=== PATIENT | female | born 1945 | race Caucasian/White ===

== ENCOUNTER → 2017-12-11 08:32 | Outpatient (CLI) | payer MEDICARE, OTHER, SELFPAY ==
--- NOTE | 2017-12-11 08:32 | DT_ITS ---
This patient was seen during an EMR downtime December 04, 2017 - December 11, 2017. This patient may have a combination of paper and electronic documentation or all paper documentation. All documentation is viewable within the e-chart portion of [facility] for each patient visit.
[2017-12-11 12:30] LABS: Absolute Lymphocyte Count 0.97 X10^3/ul (0.83-4.51); Absolute Neutrophil Count 3.6 X10^3/uL (2.0-7.7); Basophil# 0.04 X10^3/uL; Basophil% 0.8 % (0-1); Eosinophil# 0.21 X10^3/uL; Hematocrit 44.7 % (37-47); Hemoglobin 14.5 g/dl (12.0-15.0); Lymphocyte # 0.97 X10^3/ul (4.0); Lymphocyte % 18.4 % (19-41); Mean Corp Hgb Conc 32.4 g/gl (32-36); Mean Corpuscular Volume 89.4 fL (81-99); Mean Platelet Vol. 10.3 fl (6.2-12.0); Monocyte% 9.5 % (0-10); Neutrophil # 3.56 X10^3/uL (2.7-7.7); Neutrophil % 67.3 % (47-70); Platelet Count 262 K/mm3 (150-450); RBC Distribution Width SD 42.5 fl (35.1-43.9); White Blood Count 5.3 K/mm3 (4.4-11.0)
[2017-12-11 12:40] LABS: POSITIVE COUNT NO; POSITIVE DIFFERENTIAL NO; POSITIVE MORPHOLOGY NO
[2017-12-11 13:00] LABS: Anion Gap 8 (5-15); BUN 17 mg/dL (7-18); BUN/Creat Ratio 20.4 RATIO (10-20); Calcium,Total 9.6 mg/dL (8.5-10.1); Chloride 99 mmol/L (98-107); Creatinine, Serum 0.83 mg/dL (0.55-1.02); EST Glomerular Filtration Rate 72 mL/min (>60); Est Glom Filt Rate - Afr Amer 87 mL/min (>60); Glucose 92 mg/dL (74-106); Sodium Level 139 mmol/L (136-145); Thyroid Stim Hormone (TSH) 0.47 uIU/mL (0.358-3.74)
== END ==
PROVIDERS: Family Provider Family Medicine; PCP Family Medicine; Visit Provider Family Medicine
DX: I10 Essential (primary) hypertension (principal); R53.83 Other fatigue
CPT/HCPCS: 36415; 80048; 84443; 85025

== ENCOUNTER 2018-06-09 02:11 | Emergency (ER) | payer MEDICARE, OTHER, SELFPAY ==
[2018-06-09 02:12] VITALS: BP 113/73; PULSE 81; RESP 24; TEMP 36.7; O2SAT 94; BMI 246.5
--- NOTE | 2018-06-09 02:21 | ED.RN ---
RN CALLED FOR EKG, PULLED OLD EKGS FOR
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
[2018-06-09] MEDS: 0.9% Normal Saline 1,000 ML 1000 ML IV (02:46)
[2018-06-09 03:03] LABS: BUN 15 mg/dL (7-18); Creatinine, Serum 0.84 mg/dL (0.55-1.02); Estimated Creatinine Clearance 57.51 ml/min; Glucose 109 mg/dL (74-106)
[2018-06-09 03:04] LABS: ALB/GLOB Ratio 1.3 RATIO (0.9-2.4); AST(SGOT) 20 U/L (15-37); Alanine Aminotransfer ALT/SGPT 19 U/L (13-56); Albumin, Serum 3.8 g/dL (3.2-5.0); Alkaline Phosphatase 93 U/L (45-117); Anion Gap 10 (5-15); BUN/Creat Ratio 17.8 RATIO (10-20); Chloride 101 mmol/L (98-107); EST Glomerular Filtration Rate 70 mL/min (>60); Est Glom Filt Rate - Afr Amer 85 mL/min (>60); Globulin 2.9 g/dL (2.2-4.2); Potassium 2.9 mmol/L (3.5-5.1); Protein, Total 6.7 g/dL (6.4-8.2); Sodium Level 138 mmol/L (136-145)
--- NOTE | 2018-06-09 03:32 | EKG12_ITS ---
Test Reason : SYNCOPY Blood Pressure : / mmHG Vent. Rate : 078 BPM Atrial Rate : 078 BPM P-R Int : 138 ms QRS Dur : 082 ms QT Int : 428 ms P-R-T Axes : 068 080 075 degrees QTc Int : 487 ms Normal sinus rhythm Normal ECG Confirmed by WILEY ROSALES, GRISEL ([id number]), development editor CHRIS MOTA ([id number]) on 06/11/2018 2:05:16 PM Referred By: MEENAKSHI Confirmed By:GRISEL JAMA MD
[2018-06-09 03:36] LABS: Absolute Lymphocyte Count 1.77 X10^3/ul (0.83-4.51); Absolute Neutrophil Count 2.6 X10^3/uL (2.0-7.7); Basophil# 0.04 X10^3/uL; Basophil% 0.8 % (0-1); Eosinophil# 0.31 X10^3/uL; Hemoglobin 13.7 g/dl (12.0-15.0); Lymphocyte # 1.77 X10^3/ul (4.0); Lymphocyte % 34.2 % (19-41); Mean Corp Hgb Conc 33.4 g/gl (32-36); Mean Corpuscular Hgb 29.1 pg (27.0-32.0); Mean Corpuscular Volume 87.2 fL (81-99); Monocyte# 0.49 X10^3/uL; Monocyte% 9.5 % (0-10); Neutrophil # 2.56 X10^3/uL (2.7-7.7); Neutrophil % 49.5 % (47-70); Platelet Count 226 K/mm3 (150-450); RBC Distribution Width CV 12.7 % (11.6-14.6); RBC Distribution Width SD 40.9 fl (35.1-43.9); White Blood Count 5.2 K/mm3 (4.4-11.0)
[2018-06-09 03:40] LABS: POSITIVE COUNT NO; POSITIVE DIFFERENTIAL NO; POSITIVE MORPHOLOGY NO
--- NOTE | 2018-06-09 03:59 | ED.DEP ---
ED Disposition - Plan for ED Patient: Disposition: Home or Assisted Living Chief Complaint: Syncope Instructions: ED Syncope Vasovagal, ED Potassium Deficiency Prescriptions: Potassium Chloride [K-Dur] 20 meq PO BID #30 tab Referrals: Jaswinder Rosen MD [Primary Care Provider] - Keep José Antonio appointment Additional Instructions: Take the potassium supplement twice a day for 2 weeks or until your family doctor reevaluate you until you to stop. Keep your appointment as scheduled. Rest for the next 24 hours and do not do any strenuous activity or driving. If you have any worsening of your condition or any new concerning symptoms, please return immediately to the emergency department for another evaluation.
[2018-06-09 04:12] VITALS: BP 114/73; PULSE 78; RESP 16; O2SAT 97
[2018-06-09 04:21] VITALS: BP 114/73; PULSE 78; RESP 16; O2SAT 97
== END 2018-06-09 04:23 | disposition home or self-care (01) ==
PROVIDERS: Emergency Provider Emergency Medicine; Family Provider Family Medicine; PCP Family Medicine
DX: R55 Syncope and collapse (principal); E87.6 Hypokalemia; I10 Essential (primary) hypertension
CPT/HCPCS: 80048; 80053; 84484; 85025; 93005; 96360; 99285; A4216

== ENCOUNTER → 2018-06-20 09:47 | Outpatient (CLI) | payer MEDICARE, OTHER, SELFPAY ==
[2018-06-09 02:12] VITALS: BMI 246.5
[2018-06-20 12:53] LABS: Anion Gap 11 (5-15); BUN 12 mg/dL (7-18); Calcium,Total 9.3 mg/dL (8.5-10.1); Chloride 98 mmol/L (98-107); EST Glomerular Filtration Rate 75 mL/min (>60); Est Glom Filt Rate - Afr Amer 91 mL/min (>60); Glucose 83 mg/dL (74-106); Potassium 3.6 mmol/L (3.5-5.1); Sodium Level 140 mmol/L (136-145)
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
== END ==
PROVIDERS: Family Provider Family Medicine; PCP Family Medicine; Visit Provider Family Medicine
DX: E87.6 Hypokalemia (principal)
CPT/HCPCS: 36415; 80048

== ENCOUNTER → 2018-07-11 10:22 | Outpatient (CLI) | payer MEDICARE, OTHER, SELFPAY ==
[2018-07-11 12:37] LABS: Cholesterol 232 mg/dL (200); High Density Lipoprotein 101 mg/dL; Triglycerides 75 mg/dL; Very Low Density Lipoprotein 15 mg/dL (5-40)
== END ==
PROVIDERS: Family Provider Family Medicine; PCP Family Medicine; Visit Provider Family Medicine
DX: Z00.00 Encounter for general adult medical examination without abnormal findings (principal)
CPT/HCPCS: 36415; 80061

== ENCOUNTER → 2018-08-17 07:21 | Outpatient (CLI) | payer MEDICARE, OTHER, SELFPAY ==
--- NOTE | 2018-08-17 07:26 | BI_ITS ---
MAMMOGRAPHY - BILATERAL SCREENING REASON FOR EXAM: Female, 72 years old. Routine annual screening examination. PERTINENT HISTORY: Non-contributory. TECHNIQUE: Digital bilateral breast [place] (3D mammographic acquisition) in the CC and MLO projections. 2-D mediolateral oblique (MLO) and craniocaudad (CC) views of both breasts were obtained. CAD: Full Field Digital Mammography with Computer Added Detection was performed. COMPARISON: Comparison is made with prior study dated October 04, 2016. FINDINGS: Breast Composition: The breasts are extremely dense, which lowers the sensitivity of mammography. There are no dominant masses or suspicious calcifications. No other significant abnormalities are identified. There has been no significant change since the prior study. BI/SCREENING MAMM (CAD), BILAT IMPRESSION: Stable bilateral screening mammogram. Yearly follow-up mammogram recommended. (A) ASSESSMENT CATEGORY: BIRADS Category 1: Negative. A letter regarding these results will be sent to the patient by the facility within 30 days. Approximately 10% of breast cancers are not detected by mammography. A normal mammogram should not delay biopsy of a clinically suspicious abnormality. [id number] Electronically Signed: Preston He MD at 11:02 EST , Service support ,
== END ==
PROVIDERS: Family Provider Family Medicine; PCP Family Medicine; Referring Provider Family Medicine; Visit Provider Family Medicine
DX: Z12.31 Encounter for screening mammogram for malignant neoplasm of breast (principal)
CPT/HCPCS: 77063; 77067

== ENCOUNTER → 2018-09-20 10:02 | Outpatient (CLI) | payer MEDICARE, OTHER, SELFPAY | PROVIDERS: Family Provider Family Medicine; PCP Family Medicine; Referring Provider Family Medicine; Visit Provider Family Medicine | DX: K52.9 Noninfective gastroenteritis and colitis, unspecified (principal) | CPT/HCPCS: 87493; 87506 ==

== ENCOUNTER 2018-12-17 09:31 | Day surgery (SDC) | payer MEDICARE, OTHER, SELFPAY ==
[2018-12-17] VITALS (8 sets, daily range): BP systolic 80–116; BP diastolic 47–71; PULSE 61–73; RESP 16; TEMP 36.2–36.3; O2SAT 98–100; BMI 19.5
--- NOTE | 2018-12-17 10:31 | HP.PCM_ITS ---
History of Present Illness Date of Admission: 12/17/18 The patient is a 73 year old F presents for screening colonoscopy. Patient states she mostly goes every day or at least every other day. Denies any blood in her stool. Patient's last colonoscopy was about 15 years ago negative per the patient. Patient states her mom's brother had colon cancer in his 70s along with prostate cancer. Denies any other family history of colon cancer. Past Medical/Surgical History - Planned Operation Planned Operative Procedure/s: cscope open access Date of Operative Procedure: 12/17/18 Permit Signed: No S.O.S: No Is This Patient Having a Total Joint: No - Previous Hospitalizations/Surgeries HX Hospitalizations: Yes - anxiety in the past HX of Surgeries: hysterectomy. bladder lift. cscope x2 Any Problems With Anesthesia: No You/Your Family Experience Fever (Hyperthermia) With Anes: No Cholinesterase deficiency: No - Cardiovascular Hx Chest Pain within Last 2 months: No Hx of Irregular Heartbeat and/or Afib: No Hx Heart Attack: No Hx Congestive Heart Failure: No Hx Rheumatic Fever: No Hx Hypertension: Yes - controlled with med Hx Internal Defibrillator: No Hx Pacemaker: No Hx Cardiac Catheterization: No Hx Cardiac Surgery/Stents/Etc.: No Hx Stress Test: Yes - 2016 and echo 2017 HX Edema: No Hx Pain in Legs when Walking/Leg Cramps: No - Respiratory Chronic Cough: No HX of Shortness of Breath: Yes - slightly sob 2ith 2 flights of stairs Hoarseness: No Hx Chronic Obstructive Pulmonary Disease (COPD): No Hx Asthma: No Hx Emphysema: No Hx Sleep Apnea: No Hx Oxygen Use at Home: No Hx Respiratory Tract Infection/Cold (presently): No Do You Snore Loudly (louder than talking or can be heard): No Do You Often Feel Tired/ Fatigued/ Sleepy Dring Daytime?: No Has Anyone Observed You Stop Breathing During Sleep?: No Result (for STOP score): Negative Hx Smoking: No Smoking Status: Never smoker - Gastrointestinal Hx Gastroesophageal Reflux: No Hx Gastrointestinal Disorders: No Hx Gastrointestinal Bleed: No Hx Ulcer: No Hx Hiatal Hernia: No Difficulty Chewing/Swallowing: No Recent Onset of Swallowing Problems: No Special diet followed at home: No Hx Unplanned Weight Loss of 20#: No HX Unplanned Weight Gain of 20#: No - Neurological Hx Seizures: No HX Syncope/Blackout Spells/Unconsciousness: No Hx CVA/Stroke: No Hx Transient Ischemic Attacks (TIA): No Hx Multiple Sclerosis: No Hx Parkinson's Disease: No Hx Head/Neck Injury: No Hx Headaches: No Hx Back Injury/Pain: No Recent Onset of Speech Difficulty: No Restless Legs: No Does patient have nerve stimulator: No Patient instructed to have device shut off: No Rep notified?: No - Blood Disorder Hx Leukemia: No Bleeding Tendencies: No Hx Deep Vein Thrombosis: No Hx High Cholesterol: No Blood Transmitted Disease: No Hx Hepatitis: No Hx Cirrhosis: No Hx Anemia: No Hx Blood Disorders: No - Reproduction : No Is Patient Lactating: No Hx Hysterectomy: Yes Hx Tubal Ligation: No Are You Post Menopause: Yes - Genitourinary Hx Renal Disease: No Hx Dialysis: No - Musculoskeletal Hx Arthritis: No Hx Rheumatoid Arthritis: No Hx Gout: No Recent Onset of an Orthopedic Problem: No - Endocrine Hx Diabetes: No Thyroid Disease: No Hx Steroid Therapy: No - Psycho/Social Hx Substance Use: No Hx Alcohol Use: No Hx Anxiety: Yes - prn med Hx Depression: No Mental Illness: No Hx Dementia: No - Miscellaneous Hx Cancer: No Recent Exposure to Contagious Disease: No Active MRSA: No Hx of C-Diff: No Any Loose Teeth: No - upper and lower partial Allergies No Known Allergies Allergy (Verified 12/13/18 15:20) Maternal No pertinent history - Discharge Is Pt Admitted From a Half-Way, or a Skilled Nursing: No Who Could Help: family After D/C, Where Do you Plan to Go: Return Home - From the PAT History Number of Risk Factors: 1 - Physical Exam General: Alert, Oriented x3, Cooperative, No apparent distress HEENT: Atraumatic Lungs: Normal air movement Cardiovascular: Regular rate Abdomen: Soft, Non Tender, Non-Distended Extremities: No clubbing, No cyanosis, No edema Neurological: Cranial nerves II-XII grossly intact Psych/Mental Status: Normal Affect Vital Signs Temp Pulse Resp BP Pulse Ox 97.4 F L 73 16 116/70 100 12/17/18 10:07 12/17/18 10:07 12/17/18 10:07 12/17/18 10:07 12/17/18 10:07 Oxygen Delivery Method Room Air Weight: 121 lb 4.068 oz Body Mass Index (BMI) 19.5 Finger Stick Blood Glucose 88 Assessment/Plan All Active Problems Hypokalemia (Acute) Acute chest pain (Acute) Chest pain (Acute) Near syncope (Acute) Altered mental status (Acute) 73-year-old female for screening for colon cancer Surgery Risks - Colonoscopy I discussed with the patient the risks of the procedure: Yes Risks Include but are not Limited To: Risks include but are not limited to: Bleeding, perforation requiring further surgery, inability to complete colonoscopy requiring barium enema. Patient no further questions at this time.
--- NOTE | 2018-12-17 11:12 | OP.ENDO_ITS ---
12/17/2018 Jaswinder Rosen MD [address] [id number] Re : Colonoscopy procedure for [place] Dear Dr. Rosen This procedure was performed on Monday, December 17, 2018. My impressions and recommendations are as follows: Impressions : - Hemorrhoids found on perianal exam. - Diverticulosis in the entire examined colon. - Non-bleeding internal hemorrhoids. - The examination was otherwise normal. - No specimens collected. Recommendations : - Discharge patient to home. - High fiber diet. - Continue present medications. - Repeat colonoscopy in 10 years for screening purposes. depending on overall health at that time. My findings are described in the full procedure note, which is enclosed. If I can be of further assistance, please feel free to contact me at Doctor phone number(s): , Work: . Sincerely, MD Bryanna Mendenhall MD 12/17/2018 11:12:08 AM This report has been signed electronically.
== END 2018-12-17 12:34 | disposition home or self-care (01) ==
LOC: EN 09:32 → AC 09:53
PROVIDERS: Family Provider Family Medicine; PCP Family Medicine; Referring Provider Surgery; Visit Provider Surgery
PROC: 0DJD8ZZ Inspection of Lower Intestinal Tract, Via Natural or Artificial Opening Endoscopic (ICD-10-PCS; CPT 45378; principal; 2018-12-17 10:40)
DX: Z12.11 Encounter for screening for malignant neoplasm of colon (principal); K64.0 First degree hemorrhoids; I10 Essential (primary) hypertension; K57.30 Diverticulosis of large intestine without perforation or abscess without bleeding; Z80.0 Family history of malignant neoplasm of digestive organs
CPT/HCPCS: G0121; J7120

== ENCOUNTER → 2019-01-25 09:32 | Outpatient (CLI) | payer MEDICARE, OTHER, SELFPAY ==
[2018-12-17 10:07] VITALS: BMI 19.5
--- NOTE | 2019-01-25 09:35 | RAD_ITS ---
STUDY: X-RAY CHEST REASON FOR EXAM: Female, 73 years old. Bad cough x3 weeks TECHNIQUE: PA and lateral views of the chest. COMPARISON: 2016 FINDINGS: The lungs are clear and expanded. There is no demonstrated pleural abnormality. Normal size heart. Normal mediastinum and nahun. Normal visualized pulmonary arteries. Normal visualized aortic arch and descending thoracic aorta. Normal visualized thoracic spine. Normal visualized ribs, clavicles, and shoulders. There is no demonstrated abnormality of the visualized soft tissue structures of the upper abdomen. RAD/Chest PA and Lateral IMPRESSION: Normal x-ray examination of the chest. Electronically Signed: Kali Underwood MD at 9:58 EDT , Service support ,
== END ==
PROVIDERS: Family Provider Family Medicine; PCP Family Medicine; Referring Provider Family Medicine; Visit Provider Family Medicine
DX: R05 Cough (principal)
CPT/HCPCS: 71046

== ENCOUNTER 2019-02-14 03:45 | Emergency (ER) | payer MEDICARE, OTHER, SELFPAY ==
[2018-12-17 10:07] VITALS: BMI 19.5
[2019-02-14 03:45] VITALS: BP 144/85; PULSE 74; RESP 22; TEMP 36.2; O2SAT 99; BMI 20.5
--- NOTE | 2019-02-14 03:57 | CT_ITS ---
STUDY: CT ABDOMEN AND PELVIS WITHOUT CONTRAST REASON FOR EXAM: Female, 73 years old. Lower back pain, right flank pain RADIATION DOSAGE (If Supplied By Facility): CTDIvol = ( 6.21 ) mGy, DLP = ( 268.18 ) mGycm TECHNIQUE: Transaxial images were obtained from the dome of the diaphragm to the symphysis pubis without oral contrast, and without intravenous contrast. Sagittal and coronal images were reconstructed. Individualized dose optimization techniques were used for this CT. COMPARISON: CT 02/01/2017. FINDINGS: There is a limited non-IV nonoral contrast study. The visualized lung bases are unremarkable. There is a small pericardial effusion. Normal liver. There is mild gallbladder distention.. There is gallbladder wall thickening and possible gallstones and/or polypoid lesions.. Normal spleen. Normal pancreas. Normal bilateral adrenal glands. Normal right kidney. Normal left kidney. No renal or ureteral calculi. No hydronephrosis Normal visualized stomach. Normal small intestine. Normal colon. The appendix is visualized and appears normal. Normal abdominal aorta. Normal inferior vena cava. Normal retroperitoneum. Normal urinary bladder. Multiple vascular calcifications in the pelvis. There is prior hysterectomy. Normal abdominal wall. The stable lucent defect within the sacrum likely Tarlov cyst. There are degenerative changes of SI joints with bony sclerosis and osteophyte formation. There is multilevel lumbar spine disc space narrowing, disc osteophyte complexes, central canal and foraminal stenoses. There is multilevel moderate facet degenerative changes. There are stable small right inguinal hernia which contains small amount of fluid. There are small less than 5 mm subchondral cysts within both femoral necks there are degenerative changes both hip joints with subchondral geodes right acetabulum. CT/Abdomen/Pelvis without Cont IMPRESSION: Limited non-IV nonoral contrast study Gallbladder distention, gallbladder wall thickening with gallstones and/or polypoid lesions, right upper quadrant ultrasound is recommended to further evaluate acute cholecystitis versus gallbladder malignancy Moderate colonic fecal load Prior hysterectomy multilevel lumbar spine disc space narrowing, disc osteophyte complexes, central canal and foraminal stenoses. There is multilevel moderate facet degenerative changes. Further evaluation with MRI lumbar spine could be performed. Bilateral sacroiliitis Stable lucent defect within the sacrum likely Tarlov cyst Stable small right inguinal hernia which contains a small amount of fluid Degenerative changes both hips, benign subchondral cystic areas both femoral necks which can be associated with impingement syndrome Electronically Signed: Arnaldo Lane, at 5:17 EDT Tel , Service support ,
--- NOTE | 2019-02-14 03:58 | ED.DCSUM_ITS ---
History of Present Illness Chief Complaint: Back Informant: Patient, Significant Other Onset: Days - 2 Narrative: Worsening right flank pain rating to the groin down anteriorly to the knee 45 minutes prior to arrival. Nausea that resolved. No urinary symptoms. States had mild right back pain 2 days ago after pushing heavy door, worsening yesterday. Symptoms worse with movement. Denies any direct direct falls. No history of kidney stones. Has been using ibuprofen with last dose 8 hours ago. No history of gastric ulcers or kidney injury. No previous similar symptoms in the past. Prior similar symptoms: No Past Medical History - Allergies and Home Meds Allergies/Adverse Reactions: Allergies No Known Allergies Allergy (Verified 12/13/18 15:20) Primary Care Physician: Jaswinder Rosen MD [Primary Care Provider] - Smoking Status: Never smoker - Family History Maternal Family History: Reports: No pertinent history Review of Systems General: Denies: Chills, Fever, Sweats Eyes: Denies: Visual changes - bilaterally, Diplopia ENT: Denies: Rhinorrhea, Sore throat Cardiovascular: Denies: Chest pain, Palpitations Respiratory: Denies: Dyspnea, Cough, Dyspnea on exertion Gastrointestinal: Denies: Abdominal pain, Nausea, Vomiting, Diarrhea, Melena, Hematochezia Genitourinary: Denies: Dysuria, Hematuria, Frequency Musculoskeletal: Reports: Back pain. Denies: Extremity Pain Skin: Denies: Rash, Wounds Neurological: Denies: Headache, Weakness, Numbness Physical Exam Vital Signs/Narrative: Vital Signs Temp Pulse Resp BP Pulse Ox 02/14/19 03:45 97.2 F L 74 22 H 144/85 H 99 Inital Vital Signs reviewed: Yes General: Well nourished, Well developed, No Acute Distress Head: Normocephalic, Atraumatic Eyes: Perrl, EOMI ENT: Moist mucous membranes, No rhinorrhea Neck: Supple, Nontender Cardiovascular: Regular rate, Regular rhythm, No murmurs Respiratory: No distress, CTA bilaterally, Chest nontender Abdomen: Soft, Nontender, Nondistended, Normal bowel sounds Back: Normal Inspection, - - Palpation right flank with no rash. Straight Leg test negative.. Negative for: CVA tenderness, Spinal tenderness Extremities: Nontender, No edema Skin: Normal color, No rash Neurological: Alert, Oriented x3, Cranial nerves II-XII grossly intact, Normal Strength, Normal Sensation Psychological: Normal affect, Normal Mood Diagnostic/Tx/Re-eval Abnormal Lab Results 02/14/19 02/14/19 02/14/19 04:10 04:13 04:13 WBC 6.2 RBC 4.73 Hgb 13.7 Hct 42.4 MCV 89.6 MCH 29.0 MCHC 32.3 RDW Std Deviation 41.6 RDW Coeff of Jose Juan 12.5 Plt Count 247 MPV 9.9 Immature Gran % (Auto) 0.300 Neut % (Auto) 56.3 Lymph % (Auto) 25.8 [place] % (Auto) 10.5 H Eos % (Auto) 5.8 H Baso % (Auto) 1.3 H Absolute Neuts (auto) 3.5 Absolute Lymphs (auto) 1.60 Nucleated RBC % 0 Sodium 140 Potassium 3.8 Chloride 104 Carbon Dioxide 30.0 Anion Gap 6 BUN 18 Creatinine 0.76 Estim Creat Clear Calc 46.16 Est GFR (MDRD) Af Amer 96 Est GFR (MDRD) Non-Af 79 BUN/Creatinine Ratio 23.7 H Glucose 90 Calcium 9.1 Total Bilirubin Direct Bilirubin AST ALT Alkaline Phosphatase Total Protein Albumin Globulin Lipase Urine Color Yellow Urine Clarity Clear Urine pH 7.0 Ur Specific [place] 1.010 Urine Protein Negative Urine Glucose (UA) Normal Urine Ketones Negative Urine Occult Blood Negative Urine Nitrite Negative Urine Bilirubin Negative Urine Urobilinogen Normal Ur Leukocyte Esterase Negative Urine RBC 0 SEEN Urine WBC 0 SEEN Ur Squamous Epith Cells 0 SEEN Urine Bacteria 0 SEEN Urine Mucus 0 SEEN 02/14/19 02/14/19 04:13 04:13 WBC RBC Hgb Hct MCV MCH MCHC RDW Std Deviation RDW Coeff of Jose Juan Plt Count MPV Immature Gran % (Auto) Neut % (Auto) Lymph % (Auto) [place] % (Auto) Eos % (Auto) Baso % (Auto) Absolute Neuts (auto) Absolute Lymphs (auto) Nucleated RBC % Sodium Potassium Chloride Carbon Dioxide Anion Gap BUN Creatinine Estim Creat Clear Calc Est GFR (MDRD) Af Amer Est GFR (MDRD) Non-Af BUN/Creatinine Ratio Glucose Calcium Total Bilirubin 0.50 Direct Bilirubin 0.13 AST 19 ALT 21 Alkaline Phosphatase 97 Total Protein 6.5 Albumin 3.5 Globulin 3.0 Lipase 280 Urine Color Urine Clarity Urine pH Ur Specific [place] Urine Protein Urine Glucose (UA) Urine Ketones Urine Occult Blood Urine Nitrite Urine Bilirubin Urine Urobilinogen Ur Leukocyte Esterase Urine RBC Urine WBC Ur Squamous Epith Cells Urine Bacteria Urine Mucus Clinical Impression(s) from Imaging Studies Abdomen/Pelvis CT 02/14/19 03:57 IMPRESSION: Limited non-IV nonoral contrast study Gallbladder distention, gallbladder wall thickening with gallstones and/or polypoid lesions, right upper quadrant ultrasound is recommended to further evaluate acute cholecystitis versus gallbladder malignancy Moderate colonic fecal load Prior hysterectomy multilevel lumbar spine disc space narrowing, disc osteophyte complexes, central canal and foraminal stenoses. There is multilevel moderate facet degenerative changes. Further evaluation with MRI lumbar spine could be performed. Bilateral sacroiliitis Stable lucent defect within the sacrum likely Tarlov cyst Stable small right inguinal hernia which contains a small amount of fluid Degenerative changes both hips, benign subchondral cystic areas both femoral necks which can be associated with impingement syndrome Electronically Signed: Arnaldo Lane, at 5:17 EDT Tel , Service support , - Medical Decision Making Patient history worsening back pain reproducible after pushing heavy door. No cauda equina symptoms. Reports radicular symptoms, however appears slightly uncomfortable. Reports pain into her groin, renal stone protocol initiated for possible colic symptoms. Labs urine negative. CT scan negative for obstructive uropathy. Reported multiple degenerative changes of the lower back. Also noted thickened gallbladder. I did add for lipase and LFT which was normal. She has no pain in the right upper quadrant. Incidental finding at this time, clinica lly not cholecystitis. Treated initially with Toradol, and morphine. Symptoms are improving. Discussed sciatica symptoms. Discussed abnormal findings on CT. She will follow-up with her PCP for reevaluation. Signs and symptoms discussed return. All questions were answered. ED Disposition - Plan for ED Patient: Disposition: Home or Assisted Living Diagnosis: Sciatica, right side, Degenerative changes lumbar spine Instructions: BACK PAIN w/ SCIATICA Prescriptions: Docusate Sodium [Colace] 100 mg PO DAILY #20 capsule Oxycodone HCl/Acetaminophen [Percocet 5/325] 1 tablet PO Q6H PRN PRN 3 Days #12 tablet PRN Reason: Pain Referrals: Jaswinder Rosen MD [Primary Care Provider] - 3-5 Days Additional Instructions: CT scan negative for kidney stones. There is degenerative changes of the lumbar spine. There is noted gallbladder thickening with polyp versus gallstones. Your liver enzymes and lipase were normal. You have no right upper quadrant pain. Take medicines as prescribed, follow-up with your doctor for further testing as needed.
[2019-02-14] MEDS: Ketorolac 30 MG/ML Syringe IV (04:10)
[2019-02-14] MEDS: 0.9% Normal Saline 1,000 ML 250 ML IV (04:10)
[2019-02-14 04:20] LABS: Bacteria 0 SEEN /hpf (None Seen); Mucous, Urine 0 SEEN /hpf (<or=2+); Red Blood Cells-Urine 0 SEEN /hpf (0-5); Squamous Epithelial Cells - UA 0 SEEN /hpf (5-10); White Blood Cells 0 SEEN /hpf (0-5)
[2019-02-14 04:21] LABS: Absolute Neutrophil Count 3.5 X10^3/uL (2.0-7.7); Basophil# 0.08 X10^3/uL; Basophil% 1.3 % (0-1); Eosinophil# 0.36 X10^3/uL; Eosinophils% 5.8 % (0-5); Hematocrit 42.4 % (37-47); Hemoglobin 13.7 g/dL (12.0-15.0); Lymphocyte % 25.8 % (19-41); Mean Corp Hgb Conc 32.3 g/dL (32-36); Mean Corpuscular Volume 89.6 fL (81-99); Mean Platelet Vol. 9.9 fl (6.2-12.0); Monocyte# 0.65 X10^3/uL; Monocyte% 10.5 % (0-10); NRBC Flagged by Analyzer 0 % (0-5); Neutrophil # 3.48 X10^3/uL (2.7-7.7); Neutrophil % 56.3 % (47-70); Platelet Count 247 K/mm3 (150-450); RBC Distribution Width CV 12.5 % (11.6-14.6); RBC Distribution Width SD 41.6 fl (35.1-43.9); Red Blood Count 4.73 M/mm3 (4.2-5.4); White Blood Count 6.2 K/mm3 (4.4-11.0)
[2019-02-14 04:21] LABS: Color, Urine Yellow (Yellow); Glucose, Dipstick Normal (Normal); Ketone-Dipstick Negative (Negative); Leukocyte Esterase-Dipstick Negative /ul (Negative); Nitrite-Dipstick Negative (Negative); Occult Blood-Urine Negative /ul (Negative); Protein-Dipstick Negative (Negative); Urine Bilirubin Dipstick Negative (Negative); Urine Clarity Clear (Clear); Urine Urobilinogen Normal (Normal)
[2019-02-14 04:32] LABS: Anion Gap 6 (5-15); BUN 18 mg/dL (7-18); BUN/Creat Ratio 23.7 RATIO (10-20); Calcium,Total 9.1 mg/dL (8.5-10.1); Chloride 104 mmol/L (98-107); Creatinine, Serum 0.76 mg/dL (0.55-1.02); EST Glomerular Filtration Rate 79 mL/min (>60); Est Glom Filt Rate - Afr Amer 96 mL/min (>60); Estimated Creatinine Clearance 46.16 ml/min; Glucose 90 mg/dL (74-106); Potassium 3.8 mmol/L (3.5-5.1); Sodium Level 140 mmol/L (136-145)
[2019-02-14] MEDS: Morphine 4 MG/ML Syringe IV (05:20)
[2019-02-14] MEDS: Ondansetron 4 MG/2 ML Vial IV (05:21)
[2019-02-14 05:28] VITALS: BP 124/74; PULSE 72; RESP 20; O2SAT 96
[2019-02-14 05:55] LABS: Lipase 280 U/L (73-393)
[2019-02-14 05:56] LABS: AST(SGOT) 19 U/L (15-37); Alanine Aminotransfer ALT/SGPT 21 U/L (13-56); Albumin, Serum 3.5 g/dL (3.2-5.0); Alkaline Phosphatase 97 U/L (45-117); Bilirubin, Direct 0.13 mg/dL (0.00-0.30); Protein, Total 6.5 g/dL (6.4-8.2)
[2019-02-14 06:14] VITALS: BP 124/90; PULSE 72; O2SAT 97
== END 2019-02-14 06:14 | disposition home or self-care (01) ==
PROVIDERS: Emergency Provider Emergency Medicine; Family Provider Family Medicine; PCP Family Medicine
DX: M54.31 Sciatica, right side (principal); M25.78 Osteophyte, vertebrae; Z90.710 Acquired absence of both cervix and uterus
CPT/HCPCS: 74176; 80048; 80076; 81001; 83690; 85025; 96361; 96374; 96375; 99283; J7030; A4216; J2405

== ENCOUNTER → 2019-02-19 12:18 | Outpatient (CLI) | payer MEDICARE, OTHER, SELFPAY ==
[2019-02-14 03:45] VITALS: BMI 20.5
--- NOTE | 2019-02-19 12:27 | US_ITS ---
STUDY: ABDOMINAL ULTRASOUND REASON FOR EXAM: Female, 73 years old. Right-sided pain TECHNIQUE: Transabdominal ultrasound was performed with real-time and static good scale imaging. TECHNICAL QUALITY: Adequate. COMPARISON: None. FINDINGS: Liver: The liver measures 12.5 cm. There is normal echogenicity of the liver. The bile ducts are dilated. There is hepatic color flow. The direction of portal flow is hepatopetal. There is no demonstrated mass lesion. Gallbladder: There is a contracted gallbladder. The gallbladder wall measures 2.4 mm. There is a negative sonographic Almeida's sign. There is no pericholecystic fluid. There are no definite gallstones. Common Bile Duct (C.B.D.): The common bile duct measures 14 mm which is prominent. Pancreas: Normal size of the head, body and tail of the pancreas. There is normal echogenicity of the pancreas. There is no demonstrated pancreatic mass or cyst. Spleen: Normal size of the spleen. The spleen measures 8.3 x 3.3 x 2.7 cm. Right Kidney: Normal size of the right kidney. The right kidney measures 9.5 x 4.7 x 3.1 cm. Normal renal cortex. The right cortex measures 0.9 cm. There is no demonstrated renal mass or cyst. There is no right hydronephrosis. Mild nephrolithiasis. Left Kidney: Normal size of the left kidney. The left kidney measures 9.6 x 3.9 x 5.1 cm. Normal renal cortex. The left cortex measures 1.1 cm. There is no demonstrated renal mass or cyst. There is no left hydronephrosis. Mild nephrolithiasis. Aorta: Normal caliber with no evidence of aneurysm I.V.C.: The IVC is patent. US/Abdomen Complete IMPRESSION: Prominent CBD measuring 14 mm with coexisting intrahepatic biliary ductal prominence. Correlation with MRCP is recommended. Gallbladder is contracted. Possible small gallbladder polyp cannot be excluded with certainty. Bilateral mild nephrolithiasis. Electronically Signed: Nathan Maza MD at 14:42 EDT Tel [phone], Service support ,
[2019-02-19 14:23] VITALS: BMI 20.5
--- NOTE | 2019-02-19 15:31 | CT_ITS ---
STUDY: CT ABDOMEN AND PELVIS WITH CONTRAST REASON FOR EXAM: Female, 73 years old. Right abdominal pain RADIATION DOSAGE (If Supplied By Facility): CTDIvol = ( 8.09 ) mGy, DLP = ( 359.56 ) mGycm TECHNIQUE: Transaxial images were obtained from the dome of the diaphragm to the symphysis pubis without oral contrast. 100 IV/Oral Isovue 370 was administered. Sagittal and coronal images were reconstructed. Individualized dose optimization techniques were used for this CT. COMPARISON: February 14, 2019 FINDINGS: There is discoid atelectasis or scarring left lower lobe. There is a small pericardial effusion present Small hiatal hernia is noted Normal liver. Thick-walled gallbladder without calcified stones possibly physiologic. If concern for gallbladder disease ultrasound recommended. Normal spleen. Normal pancreas. Normal bilateral adrenal glands. No evidence for renal obstruction or ureteral calculus. There is a tiny cyst in the right kidney Mild concentric thickening of the wall the distal stomach which may be consistent with gastritis. Mild ileus with diffuse fecal retention in the colon. No evidence for small bowel obstruction. The appendix is visualized and appears normal. Normal abdominal aorta. Normal inferior vena cava. Normal retroperitoneum. Incompletely distended mildly thick-walled bladder likely of no significance Uterus not visualized consistent with hysterectomy There is a small hernia in the right groin with fluid in the canal of [place] . Lumbar spine demonstrates mild spondylosis. 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 CT/Abdomen/Pelvis WITH Contrast IMPRESSION: Mild nonspecific thickening of the wall the gallbladder without pericholecystic edema or calcified stone. If concern for gallbladder disease ultrasound recommended. There is also associated mild concentric thickening of the amado of the stomach which may be consistent with nonspecific gastritis Mild ileus with diffuse fecal retention in the colon Other findings as above Electronically Signed: Zach Jennings MD at 18:02 EDT , Service support ,
== END ==
PROVIDERS: Family Provider Family Medicine; PCP Family Medicine; Referring Provider Surgery; Visit Provider Surgery
DX: R10.9 Unspecified abdominal pain (principal)
CPT/HCPCS: 74177; 76700; Q9967

== ENCOUNTER → 2019-02-20 09:35 | Outpatient (CLI) | payer MEDICARE, OTHER, SELFPAY ==
[2019-02-19 14:23] VITALS: BMI 20.5
--- NOTE | 2019-02-20 09:37 | NM_ITS ---
NUCLEAR MEDICINE HEPATOBILIARY SCAN CLINICAL: Female, 73 years old. History: Abdominal pain COMPARISON: No relevant priors. TECHNIQUE: Radiopharmaceutical: IV administration of 5.3 mCi of Tc99m Mebrofenin. Imaging: Anterior dynamic imaging of the right upper abdomen obtained over a 120-minute period. FINDINGS: Liver: Homogenous prompt uptake without focal abnormality. Normal hepatic transit time. Small Bowel Excretion: Normal. Gallbladder: Not visualized at 120 minutes. Gallbladder ejection fraction not performed. NM/Hepatobilliary Img w/Pharm Int IMPRESSION: Abnormal hepatobiliary scan. Nonvisualization of the gallbladder and therefore ejection fraction assessment of gallbladder not performed. There is patency of the common bile and common hepatic duct. Electronically Signed: Nathan Maza MD at 13:13 EDT Tel [phone], Service support ,
== END ==
PROVIDERS: Family Provider Family Medicine; PCP Family Medicine; Referring Provider Surgery; Visit Provider Surgery
DX: R10.9 Unspecified abdominal pain (principal)
CPT/HCPCS: 78227; A9537

== ENCOUNTER 2019-02-21 12:37 | Day surgery (SDC) | payer MEDICARE, OTHER, SELFPAY ==
[2019-02-19 14:23] VITALS: BMI 20.5
--- NOTE | 2019-02-20 16:19 | HP.PCM_ITS ---
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 Patient was also scheduled for a HIDA scan on 02/20/19 which demonstrated abnormal hepatobiliary scan, Nonvisualization of the gallbladder and therefore ejection fraction, assessment of gallbladder not performed. There is patency of the common bile and common hepatic duct. Above results were relayed to the patient and Dr. Henderson. Intake Chief Complaint: ALTERED MENTAL STATUS Allergies No Known Allergies Allergy (Verified 02/20/19 14:11) Medications Aspirin E.C. [Ecotrin] 81 mg PO QODAY 02/16/16 [History Confirmed 02/20/19] Multivitamin [Multiple Vitamins] 1 ea PO DAILY 08/22/16 [History Confirmed 02/20/19] Calcium (Elemental) [Os-Quinton 500] 500 mg PO MOWEFR 12/13/18 [History Confirmed 02/20/19] Clonazepam [Klonopin] 0.5 mg PO Q8H PRN PRN 12/13/18 [History Confirmed 02/20/19] omeprazole 20 mg capsule,delayed release 20 mg PO DAILY PRN 02/19/19 [History Confirmed 02/20/19] promethazine 25 mg tablet 25 mg PO Q6H PRN 02/19/19 [History Confirmed 02/20/19] triamterene 37.5 mg-hydrochlorothiazide 25 mg tablet 1 tab PO DAILY 02/19/19 [History Confirmed 02/20/19] Docusate Sodium [Colace] 100 mg PO DAILY PRN 02/20/19 [History Confirmed 02/20/19] Assessment & Plan Problems 1. Right upper quadrant abdominal pain R10.11 2. Pain of right lower extremity M79.604 Plan - Joanna Lawson PA-C After further discussion with Dr. Henderson earlier. Dr. Henderson will plan to perform a laparoscopic cholecystectomy with intraoperative cholangiogram. Procedure details, risks and benefits have been explained to the patient and her over the phone. They are both aware that this may or may not take away all of her pain. They are aware this is an outpatient procedure, however depending on what Dr. Henderson finds, she may be admitted. Patient and her have had the opportunity to ask and have questions answered. Patient verbally understands and agrees with the proposed plan. Patient is scheduled for her procedure tomorrow. She has been instructed no eating or drinking after midnight. She is to arrive at 1300 pm to central registration. Orders Orders: Abdomen/Pelvis WITH Contrast 02/19/19 R10.9 Hepatobilliary Img w/Pharm Int Today R10.9 Intake Vital Signs 02/19/19 Height 5 ft 6 in 02/19/19 Weight: 127 lb 02/19/19 Body Mass Index (BMI) 20.5 02/19/19 Blood Pressure 127/75 H 02/19/19 Blood Pressure Location Rt brachial 02/19/19 Respiratory Rate 16 02/19/19 Pulse Rate 79 02/19/19 Pulse Source Monitor 02/19/19 Temperature 98.2 F 02/19/19 Temperature Source Oral 02/19/19 Pulse Ox 100 02/19/19 Oxygen Delivery Method room air 02/19/19 Body Mass Index (BMI) 20.5 Intake Visit Reasons: Gall Stones Mother Baby Rn Required: Yes Is patient in pain?: Yes (RUQ/ R Flank) Pain scale (1-10): 8 Allergies No Known Allergies Allergy (Verified 02/19/19 14:24) Medications Aspirin E.C. [Ecotrin] 81 mg PO QODAY 02/16/16 [History Confirmed 02/19/19] Multivitamin [Multiple Vitamins] 1 ea PO DAILY 08/22/16 [History Confirmed 02/19/19] Calcium (Elemental) [Os-Quinton 500] 500 mg PO DAILY@0800 12/13/18 [History Confirmed 02/19/19] Clonazepam [Klonopin] 0.5 mg PO Q8H PRN PRN 12/13/18 [History Confirmed 02/19/19] Docusate Sodium [Colace] 100 mg PO DAILY #20 cap 02/14/19 [Rx Confirmed 02/19/19] Oxycodone HCl/Acetaminophen [Percocet 5/325] 1 tab PO Q6H PRN PRN 3 Days #12 tab 02/14/19 [Rx Confirmed 02/19/19] omeprazole 20 mg capsule,delayed release 20 mg PO DAILY 02/19/19 [History Co nfirmed 02/19/19] promethazine 25 mg tablet 25 mg PO Q6H PRN 02/19/19 [History Confirmed 02/19/19] triamterene 37.5 mg-hydrochlorothiazide 25 mg tablet 1 tab PO DAILY 02/19/19 [History Confirmed 02/19/19] PFSH Medical History Gastroenteritis (Acute) GERD (gastroesophageal reflux disease) (Acute) History of irritable bowel syndrome (Acute) Sciatic leg pain (Acute) Nausea (Acute) Hypokalemia (Acute) Acute chest pain (Acute) Chest pain (Acute) Hypertension (Chronic) Near syncope (Acute) Altered mental status (Acute) Anxiety (Chronic) Surgical History Hx of colonoscopy (Acute) Hx of bladder repair surgery (Acute) History of partial hysterectomy (Acute) Family History Mother Arthritis Heart disease Hypertension Social History (Updated 02/19/19 @ 16:31 by Joanna Lawson PA-C) Smoking Status: Never smoker second hand exposure: No alcohol intake: never substance use type: does not use what type of physical activity do you participate in: none frequency: does not exercise HPI: MAUREEN BAIRD, is a 73 F who presents to the office today for right sided pain into the right groin into the medial upper thigh. Patient had a CT scan of the abdomen/pelvis on 02/14/2019 which demonstrated mild gallbladder distention, wall thickening and possible gallstones and/or polypoid lesions suspicious for acute cholecystitis versus gallbladder malignancy. There was also multiple multiple spinal defects, small right inguinal hernia. Patient noted her pain started 2 weeks ago. She presented to the ED on 02/14/19 for her above symptoms. She was diagnosed with sciatic nerve pain. She was given narcotic pain medication which has not helped. She notes food does not effect her pain level. She notes bloating only. Last night she had mac and cheese and ice cream which did not increase her pain level. Patient notes positive for nausea. Negative for vomiting. She notes constipation. Denies change in color in stool. She denies unintentional weight loss. She notes slight improvement in pain with walking. Patient denies previous gallbladder concerns. Patient notes previous total hysterectomy and bladder repair in 1990 and tubal ligation. Patient had an abdominal u/s today which demonstrated minimal pericholecystic fluid, gallblad krys contracted, liver ducts slightly dilated. Patient denies previous cardiac and pulmonary issues. ROS General General: No weight change, appetite, fatigue, colon cancer, breast cancer or weakness HEENT HEENT: No difficulty swallowing, eye injury, eye surgery, swollen glands or hoarseness Endo Endocrine: No thyroid disease, diabetes mellitus, thyroid cancer, Hair loss, heat intolerance or cold intolerance Skin Skin: No rash or changing moles Musc Musculoskeletal: No back problems, arthritis, rheumatoid arthritis, gout or joint pain Cardio Cardiovascular: Yes high blood pressure; no murmur, pacemaker, heart disease, atrial fibrillation, heart attack, heart stent, palpitations, shortness of breat with exertion or chest pain Psych Psychiatric: Yes anxiety; no depression or hearing voices Resp Respiratory: No shortness of breath, No sleep apnea, No cough, No COPD, No asthma, No emphysema, No wheezing Gastro Gastrointestinal: No abdominal pain, Yes nausea or vomiting, No diarrhea, No con stipation, No blood in stool, No acid reflux, No hemorrhoids, No ulcers, No gallbladder problem, No black,tarry stools Herson Hematologic: No blood thinners, No blood disorders, No bleeding, No anemia, No blood clots Neuro Neurologic: No system reviewed and no additional complaints, except as docu, No as per HPI, No abnormal walking, No abnormal hearing, No abnormal movements, No abnormal speech, No behavioral changes, No burning sensations, No confusion, No seizure-like activity, No unsteadiness, No dizziness, No localized weakness, No frequent falls, No headache(s), No lack of coordination, No loss of vision, No memory loss, No numbness, No other visual disturbances, No radiating pain, No restless legs, No sensory deficit, No fainting, No tingling, No tremor(s), No weakness, No other Exam Const General: cooperative, healthy appearing, comfortable, no acute distress [facility] Head: normal to inspection Eyes General: appearance normal, both eyes and all related structures Neck Neck: normal visual inspection Neck mass: No Resp Effort & Inspection: normal respiratory effort Auscultation: clear to auscultation bilaterally Cardio Rate: regular rate Rhythm: regular rhythm Heart Sounds: no murmurs GI Inspection: normal to inspection Palpation: soft, tender (right side into right groin region) Auscultation: normal bowel sounds Skin General: no rashes or lesions noted Neuro General: no focal motor deficits, CN's II-XI intact bilaterally Extrem General: normal to inspection Psych Appearance: grossly normal Affect: normal affect Assessment & Plan Problems 1. Right upper quadrant abdominal pain R10.11 Plan Patient was discussed with Dr. Henderson. Dr. Henderson also evaluated this patient. We recommend contrasted CT scan of the abdomen/pelvis and HIDA scan. We will review the results and contact the patient with the results. Patient has had the opportunity to ask and have questions answered. Orders Orders: Abdomen/Pelvis WITH Contrast Today R10.9 Hepatobilliary Img w/Pharm Int Today R10.9 Coding Level of Care Code Off vis,new,level 3 Diagnoses Right upper quadrant abdominal pain R10.11 Abdominal location: right upper quadrant
--- NOTE | 2019-02-21 12:52 | EKG12_ITS ---
Test Reason : PREOP Blood Pressure : / mmHG Vent. Rate : 081 BPM Atrial Rate : 081 BPM P-R Int : 122 ms QRS Dur : 082 ms QT Int : 386 ms P-R-T Axes : 003 074 019 degrees QTc Int : 448 ms Normal sinus rhythm Nonspecific ST abnormality Abnormal ECG When compared with ECG of 09-JUN-2018 02:17, Nonspecific T wave abnormality now evident in Inferior leads Confirmed by WILEY ROSALES, GRISEL ([id number]), video editor RANDY JACOB ([id number]) on 02/25/2019 1:38:13 PM Referred By: Arnaldo Henderson Confirmed By:GRISEL JAMA MD
[2019-02-21 13:08] VITALS: BP 130/86; PULSE 81; RESP 16; TEMP 36.9; O2SAT 100; BMI 19.3
[2019-02-21] MEDS: Lactated Ringers 1,000 ML 15 ML IV (13:30)
--- NOTE | 2019-02-21 14:10 | GALL_PTH ---
PATIENT: MAUREEN BAIRD LOC: [facility] – [place] U#:[id number] AGE/SX: 73/F ROOM: RE02/21/[address]: Dr. Arnaldo Henderson MD : [id number] BED: DIS: 02/21/2019 SPEC #: [id number] RECD: 02/21/19 16:13 STATUS: ADITYA RERegino #: [id number] EZEQUIEL: 02/21/19 14:[address]: Arnaldo Henderson DEPT: SURGICAL PATHOLOGY RECD BY: Luis F Daniels ENTERED: 02/22/19 08:51 SP TYPE: NOVA DAVIS DR: Dr. Jaswinder Rosen MD Tissues: Gallbladder, NOS Procedures: Surgery Specimen Level III HEADER OPERATION: Laparoscopic cholecystectomy with IOC PRE-OP DIAGNOSIS: Acute cholecystitis TISSUE SUBMITTED: Gallbladder MICROSCOPIC DIAGNOSIS Gallbladder: Chronic cholecystitis and cholelithiasis. Focal dysplastic changes. SJ:araceli 02/25/19 COMMENT Case has been reviewed in consultation with Dr. Cee who concurs with the above diagnosis. IDC:AM MICROSCOPIC DESCRIPTION Slides are reviewed. GROSS DESCRIPTION Received is one container labeled with the patient's name and designated gallbladder. The specimen consists of a gallbladder measuring 9.5 cm in length and up to 4 cm in diameter. The external surface is pink-martell, smooth and glistening for the most part. Focally it is granular, hemorrhagic and contains cautery artifact. The gallbladder contains green-yellow mucoid bile and 7 multifaceted yellowish green stones measuring in aggregate 5.5 x 5 x 2 cm and 1.5 to 2 cm in greatest dimension. [employer] sections from the gallbladder and the cystic duct are submitted in one cassette. / SJ:sp 02/22/19 TC: 5 CPT: 19432 More sections are submitted in 3 cassettes 2 to 4. /SJ:sp 02/25/19
--- NOTE | 2019-02-21 14:19 | PCM.HP.BLA ---
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 Patient was also scheduled for a HIDA scan on 02/20/19 which demonstrated abnormal hepatobiliary scan, Nonvisualization of the gallbladder and therefore ejection fraction, assessment of gallbladder not performed. There is patency of the common bile and common hepatic duct. Above results were relayed to the patient and Dr. Henderson. Intake Chief Complaint: ALTERED MENTAL STATUS Allergies No Known Allergies Allergy (Verified 02/20/19 14:11) Medications Aspirin E.C. [Ecotrin] 81 mg PO QODAY 02/16/16 [History Confirmed 02/20/19] Multivitamin [Multiple Vitamins] 1 ea PO DAILY 08/22/16 [History Confirmed 02/20/19] Calcium (Elemental) [Os-Quinton 500] 500 mg PO MOWEFR 12/13/18 [History Confirmed 02/20/19] Clonazepam [Klonopin] 0.5 mg PO Q8H PRN PRN 12/13/18 [History Confirmed 02/20/19] omeprazole 20 mg capsule,delayed release 20 mg PO DAILY PRN 02/19/19 [History Confirmed 02/20/19] promethazine 25 mg tablet 25 mg PO Q6H PRN 02/19/19 [History Confirmed 02/20/19] triamterene 37.5 mg-hydrochlorothiazide 25 mg tablet 1 tab PO DAILY 02/19/19 [History Confirmed 02/20/19] Docusate Sodium [Colace] 100 mg PO DAILY PRN 02/20/19 [History Confirmed 02/20/19] Assessment & Plan Problems 1. Right upper quadrant abdominal pain R10.11 2. Pain of right lower extremity M79.604 Plan - Joanna Lawson PA-C After further discussion with Dr. Henderson earlier. Dr. Henderson will plan to perform a laparoscopic cholecystectomy with intraoperative cholangiogram. Procedure details, risks and benefits have been explained to the patient and her over the phone. They are both aware that this may or may not take away all of her pain. They are aware this is an outpatient procedure, however depending on what Dr. Henderson finds, she may be admitted. Patient and her have had the opportunity to ask and have questions answered. Patient verbally understands and agrees with the proposed plan. Patient is scheduled for her procedure tomorrow. She has been instructed no eating or drinking after midnight. She is to arrive at 1300 pm to central registration. Orders Orders: Abdomen/Pelvis WITH Contrast 02/19/19 R10.9 Hepatobilliary Img w/Pharm Int Today R10.9 Intake Vital Signs 02/19/19 Height 5 ft 6 in 02/19/19 Weight: 127 lb 02/19/19 Body Mass Index (BMI) 20.5 02/19/19 Blood Pressure 127/75 H 02/19/19 Blood Pressure Location Rt brachial 02/19/19 Respiratory Rate 16 02/19/19 Pulse Rate 79 02/19/19 Pulse Source Monitor 02/19/19 Temperature 98.2 F 02/19/19 Temperature Source Oral 02/19/19 Pulse Ox 100 02/19/19 Oxygen Delivery Method room air 02/19/19 Body Mass Index (BMI) 20.5 Intake Visit Reasons: Gall Stones Medical Data Analyst Required: Yes Is patient in pain?: Yes (RUQ/ R Flank) Pain scale (1-10): 8 Allergies No Known Allergies Allergy (Verified 02/19/19 14:24) Medications Aspirin E.C. [Ecotrin] 81 mg PO QODAY 02/16/16 [History Confirmed 02/19/19] Multivitamin [Multiple Vitamins] 1 ea PO DAILY 08/22/16 [History Confirmed 02/19/19] Calcium (Elemental) [Os-Quinton 500] 500 mg PO DAILY@0800 12/13/18 [History Confirmed 02/19/19] Clonazepam [Klonopin] 0.5 mg PO Q8H PRN PRN 12/13/18 [History Confirmed 02/19/19] Docusate Sodium [Colace] 100 mg PO DAILY #20 cap 02/14/19 [Rx Confirmed 02/19/19] Oxycodone HCl/Acetaminophen [Percocet 5/325] 1 tab PO Q6H PRN PRN 3 Days #12 tab 02/14/19 [Rx Confirmed 02/19/19] omeprazole 20 mg capsule,delayed release 20 mg PO DAILY 02/19/19 [History Confirmed 02/19/19] promethazine 25 mg tablet 25 mg PO Q6H PRN 02/19/19 [History Confirmed 02/19/19] triamterene 37.5 mg-hydrochlorothiazide 25 mg tablet 1 tab PO DAILY 02/19/19 [History Confirmed 02/19/19] PFSH Medical History Gastroenteritis (Acute) GERD (gastroesophageal reflux disease) (Acute) History of irritable bowel syndrome (Acute) Sciatic leg pain (Acute) Nausea (Acute) Hypokalemia (Acute) Acute chest pain (Acute) Chest pain (Acute) Hypertension (Chronic) Near syncope (Acute) Altered mental status (Acute) Anxiety (Chronic) Surgical History Hx of colonoscopy (Acute) Hx of bladder repair surgery (Acute) History of partial hysterectomy (Acute) Family History Mother Arthritis Heart disease Hypertension Social History (Updated 02/19/19 @ 16:31 by Joanna Lawson PA-C) Smoking Status: Never smoker second hand exposure: No alcohol intake: never substance use type: does not use what type of physical activity do you participate in: none frequency: does not exercise HPI: MAUREEN BAIRD, is a 73 F who presents to the office today for right sided pain into the right groin into the medial upper thigh. Patient had a CT scan of the abdomen/pelvis on 02/14/2019 which demonstrated mild gallbladder distention, wall thickening and possible gallstones and/or polypoid lesions suspicious for acute cholecystitis versus gallbladder malignancy. There was also multiple multiple spinal defects, small right inguinal hernia. Patient noted her pain started 2 weeks ago. She presented to the ED on 02/14/19 for her above symptoms. She was diagnosed with sciatic nerve pain. She was given narcotic pain medication which has not helped. She notes food does not effect her pain level. She notes bloating only. Last night she had mac and cheese and ice cream which did not increase her pain level. Patient notes positive for nausea. Negative for vomiting. She notes constipation. Denies change in color in stool. She denies unintentional weight loss. She notes slight improvement in pain with walking. Patient denies previous gallbladder concerns. Patient notes previous total hysterectomy and bladder repair in 1990 and tubal ligation. Patient had an abdominal u/s today which demonstrated minimal pericholecystic fluid, gallbladder contracted, liver ducts slightly dilated. Patient denies previous cardiac and pulmonary issues. ROS General General: No weight change, appetite, fatigue, colon cancer, breast cancer or weakness HEENT HEENT: No difficulty swallowing, eye injury, eye surgery, swollen glands or hoarseness Endo Endocrine: No thyroid disease, diabetes mellitus, thyroid cancer, Hair loss, heat intolerance or cold intolerance Skin Skin: No rash or changing moles Musc Musculoskeletal: No back problems, arthritis, rheumatoid arthritis, gout or joint pain Cardio Cardiovascular: Yes high blood pressure; no murmur, pacemaker, heart disease, atrial fibrillation, heart attack, heart stent, palpitations, shortness of breat with exertion or chest pain Psych Psychiatric: Yes anxiety; no depression or hearing voices Resp Respiratory: No shortness of breath, No sleep apnea, No cough, No COPD, No asthma, No emphysema, No wheezing Gastro Gastrointestinal: No abdominal pain, Yes nausea or vomiting, No diarrhea, No constipation, No blood in stool, No acid reflux, No hemorrhoids, No ulcers, No gallbladder problem, No black,tarry stools Herson Hematologic: No blood thinners, No blood disorders, No bleeding, No anemia, No blood clots Neuro Neurologic: No system reviewed and no additional complaints, except as docu, No as per HPI, No abnormal walking, No abnormal hearing, No abnormal movements, No abnormal speech, No behavioral changes, No burning sensations, No confusion, No seizure-like activity, No unsteadiness, No dizziness, No localized weakness, No frequent falls, No headache(s), No lack of coordination, No loss of vision, No memory loss, No numbness, No other visual disturbances, No radiating pain, No restless legs, No sensory deficit, No fainting, No tingling, No tremor(s), No weakness, No other Exam Const General: cooperative, healthy appearing, comfortable, no acute distress [facility] Head: normal to inspection Eyes General: appearance normal, both eyes and all related structures Neck Neck: normal visual inspection Neck mass: No Resp Effort & Inspection: normal respiratory effort Auscultation: clear to auscultation bilaterally Cardio Rate: regular rate Rhythm: regular rhythm Heart Sounds: no murmurs GI Inspection: normal to inspection Palpation: soft, tender (right side into right groin region) Auscultation: normal bowel sounds Skin General: no rashes or lesions noted Neuro General: no focal motor deficits, CN's II-XI intact bilaterally Extrem General: normal to inspection Psych Appearance: grossly normal Affect: normal affect Assessment & Plan Problems 1. Right upper quadrant abdominal pain R10.11 Plan Patient was discussed with Dr. Henderson. Dr. Henderson also evaluated this patient. We recommend contrasted CT scan of the abdomen/pelvis and HIDA scan. We will review the results and contact the patient with the results. Patient has had the opportunity to ask and have questions answered. Orders Orders: Abdomen/Pelvis WITH Contrast Today R10.9 Hepatobilliary Img w/Pharm Int Today R10.9 Coding Level of Care Code Off vis,new,level 3 Diagnoses Right upper quadrant abdominal pain R10.11 Abdominal location: right upper quadrant 02/20/19 1620 <Electronically signed by Joanna Lawson PA-C> Date Joanna Lawson PA-C Cosigner Signature: Date (if applicable) CC: Joanna Lawson PA-C; Jaswinder Rosen MD ~ Signed After the patient's office visit she subsequently had a CT scan. This demonstrated thick-walled gallbladder. No obvious calcified gallstones. There were other findings noted that did not reflect the issue of concern. She had had a gallbladder ultrasound which demonstrated small contracted gallbladder. The possibility of a gallbladder polyp could not be excluded. Certainly one was not definitively seen. A hepatobiliary scan had been obtained. This demonstrated nonvisualization of the gallbladder. This was felt to be consistent with acute cholecystitis. In detail I discussed the technique, benefits, risks, alternatives of a laparoscopic cholecystectomy with selective cholangiography and possible conversion to an open technique with the patient and . They have had an opportunity to ask and have questions answered. Although her pain seems in a slightly different position than would be anticipated clearly she appears to have an abnormal functioning gallbladder. We will proceed as noted. The patient is aware that this may not remedy her discomfort. Arnaldo Henderson M.D., F.A.C.S.
[2019-02-21] MEDS: Cefazolin 2 GM in 0.9% Normal Saline 100 ML IV (14:25)
--- NOTE | 2019-02-21 14:34 | PCM.DC.GS ---
Discharge Diet: Light diet - advance as tolerated - if you have questions about your diet instructions, please talk to you doctor. Discharge Activity: May Not Drive - for 3-5 days or while taking narcotic pain medicine. May shower in (days): 1 Lifting Restrictions: 10 pounds Call your doctor if your incision/area has: Continuous Slow Oozing, Sudden Increased Bleeding, Increased Pain/ Swelling, Increased Redness, Foul Smelling Discharge Call your doctor if you observe: Fever of 101 or Higher Suture Line Care: Avoid Pulling/Pushing, Avoid Pinching/Bending Additional Dressing/Incision Instructions:: Change or remove dressing in 4 days. Leave steri-strips in place for 1 week. Allergies/Adverse Reactions: Allergies No Known Allergies Allergy (Verified 02/21/19 13:03) Medications to take at Discharge Aspirin E.C. [Ecotrin] 81 mg PO QODAY 02/16/16 Multivitamin [Multiple Vitamins] 1 ea PO DAILY 08/22/16 Calcium (Elemental) [Os-[place] 500] 500 mg PO MOWEFR 12/13/18 Clonazepam [Klonopin] 0.5 mg PO Q8H PRN PRN 12/13/18 omeprazole 20 mg capsule,delayed release 20 mg PO DAILY PRN 02/19/19 promethazine 25 mg tablet 25 mg PO Q6H PRN 02/19/19 triamterene 37.5 mg-hydrochlorothiazide 25 mg tablet 1 tab PO DAILY 02/19/19 Docusate Sodium [Colace] 100 mg PO DAILY PRN 02/20/19 Hydrocodone Bitart/Apap 5-325 [[place] 5MG-325MG] 1 tablet PO Q4H PRN PRN 3 Days #10 tablet 02/21/19 The following prescriptions were given: Hydrocodone Bitart/Apap 5-325 [[place] 5MG-325MG] 1 tablet PO Q4H PRN PRN 3 Days #10 tablet PRN Reason: Pain Transmission Status: Sent to [id number] Primary Care Physician: aJswinder Rosen MD [Primary Care Provider] - Test Results: Test results from this visit will be discussed in further detail at your follow-up appointment, if applicable. Please Follow Up With: Arnaldo Henderson MD - [phone] When: Call to make an appointment to be seen in about 10 days.
--- NOTE | 2019-02-21 14:35 | RAD_ITS ---
PROCEDURE: INTRAOPERATIVE CHOLANGIOGRAM. REASON FOR EXAM: Female, 73 years old. Cholecystitis. FLUOROSCOPY TIME (if supplied): (0:30) minutes/seconds RADIATION DOSAGE (If Supplied By Facility): 11.02 mGy TECHNIQUE: Real-time fluoroscopy was provided during intraoperative contrast infusion via the cystic duct. Cine run comprising 198 images is submitted. COMPARISON: Abdominal ultrasound and contrast-enhanced CT abdomen and pelvis February 19, 2019; hepatobiliary scan February 20, 2019. FINDINGS: Normal caliber intra-and extrahepatic bile ducts. No filling defects or strictures seen. Contrast flows to the duodenum. RAD/Cholangiogram/ O R,Initial IMPRESSION: Normal intraoperative cholangiogram. Electronically Signed: Kali Omalley MD at 16:06 EDT , Service support ,
[2019-02-21] MEDS: Bupivacaine 0.5% PF 10 ML VIAL (15:30)
--- NOTE | 2019-02-21 15:41 | OP.PCM_ITS ---
Problem List (1) Acute cholecystitis Status: Acute Report of Operation Date of Procedure: 02/21/19 Pre-Operative Diagnosis: Acute cholecystitis Post-Operative Diagnosis: Chronic cholecystitis cholelithiasis Surgery/Procedure Performed:: Laparoscopic cholecystectomy with cholangiograms Description of Surgical Findings:: 73-year-old female. She has right flank pain and nonvisualization of the gallbladder and thick-walled gallbladder and 2 CAT scans. She was taken the operative placement table underwent general endotracheal intubation and anesthesia. Ancef 2 g given intravenous preoperatively. The M sterilely prepped draped. Inferior to the umbilicus 0.5% Marcaine was instilled sharp vertical incision created sharp dissection carried down through the fascia varies needle inserted saline drop test performed the abdomen was insufflated with CO2 to pressure of 10 mmHg pressure to be trocar inserted Hem-o-pia scope inserted no concern trocar injuries were adhesions of the right lower quadrant cecum to the sidewall and of the ascending colon but these appear to be all chronic old adhesions were adhesions of omentum to the gallbladder the gallbladder wall itself did not appear to be tense or inflamed. 5-minute trochars were placed in the epigastric mid right upper quadrant and lateral right upper quadrant. The gallbladder was distracted tedious dissection was required to free the lax omentum from the gallbladder this was done with hemo-lock clips and electrocautery were indicated. Finally this gain exposure to the infundibular area. I was able to bluntly dissected that free. I dissected free until I clearly had the hepatocystic angle I had done some of the gallbladder dissection to assure that I had the cystic duct and cystic artery. The cystic artery was clipped proximally distally prior to transecting it hemo- lock clip was placed on the cystic duct and through 14-gauge Angiocath clench Trino catheter was inserted. Fluoroscopically control claims grams were obtained demonstrating normal ductal anatomy and free flow to the small bowel. The clench Trino catheter was removed a hemo-lock clip was placed on the cystic duct stump prior to transecting it. The gallbladder was dissected free from the liver bed further gallbladder peritoneum was secured with hemo-lock clips. The gallbladder was released there was no spillage. Hemostasis the liver bed nicely intact. The gallbladder was placed in a retrieval bag exited at the umbilicus. The remaining trochars removed under visualization. The abdomen was allowed to deflate the CO2. The fascia at the umbilicus approximated with running 0 Vicryl. Skin edges approximate interrupted 4 Monocryl subdermal stitches. Steri-Strips Telfa and OpSite dressings applied. Sponge and instrument and nee dle counts were reported the surgeon to be correct. Blood loss was minimal. She tolerated the procedure well was taken to the recovery area in satisfactory condition without apparent complication. Specimens gallbladder. Drains none. Blood loss minimal. Arnaldo Henderson M.D., F.A.C.S. Anesthesiologist: Tevin Martinez
[2019-02-21 15:55] VITALS: BP 130/85; BP 139/93; PULSE 85; RESP 18; TEMP 36.9; O2SAT 99
[2019-02-21 16:00] VITALS: BP 130/85; BP 144/98; PULSE 86; RESP 18; O2SAT 98
[2019-02-21] MEDS: Lactated Ringers 1,000 ML 100 ML IV (16:00)
[2019-02-21 16:09] VITALS: BP 130/85; BP 145/91; PULSE 80; RESP 18; TEMP 36.5; O2SAT 97
[2019-02-21 18:46] VITALS: BP 130/85; BP 156/85; PULSE 85; RESP 18; O2SAT 100
[2019-02-21 19:00] VITALS: BP 130/85
== END 2019-02-21 19:02 | disposition home or self-care (01) ==
LOC: SDC 12:37 → AC 12:43
PROVIDERS: Family Provider Family Medicine; PCP Family Medicine; Referring Provider Surgery; Visit Provider Surgery
PROC: (CPT 47610; principal; 2019-02-21 13:50)
DX: K80.10 Calculus of gallbladder with chronic cholecystitis without obstruction (principal); K66.0 Peritoneal adhesions (postprocedural) (postinfection); K40.90 Unilateral inguinal hernia, without obstruction or gangrene, not specified as recurrent; M47.816 Spondylosis without myelopathy or radiculopathy, lumbar region; R93.2 Abnormal findings on diagnostic imaging of liver and biliary tract; Z79.82 Long term (current) use of aspirin; I10 Essential (primary) hypertension
CPT/HCPCS: 47563; 74300; 76000; 88304; 93005; J7120; J2405

== ENCOUNTER 2019-02-22 02:36 | Emergency (ER) | payer MEDICARE, OTHER, SELFPAY ==
[2019-02-21 13:08] VITALS: BMI 19.3
[2019-02-22 02:38] VITALS: BP 174/84; PULSE 82; RESP 15; TEMP 36.8; O2SAT 99; BMI 21.4
--- NOTE | 2019-02-22 02:45 | ED.VIS.GEN ---
History of Present Illness Chief Complaint: Complaint Informant: Patient Narrative: Patient presents with urinary retention. She had gallbladder surgery yesterday. She was discharged at 7 PM and has not been able to urinate since. She feels the urge to urinate and was only able to urinate a couple tablespoons. She is never had this happen before. There is no complications with her surgery. Current severity is moderate. - Past Medical History (1) Acute chest pain Status: Acute (2) Acute cholecystitis Status: Acute (3) Altered mental status Status: Acute (4) Biliary dyskinesia Status: Acute (5) Chest pain Status: Acute (6) GERD (gastroesophageal reflux disease) Status: Acute (7) Gastroenteritis Status: Acute (8) History of irritable bowel syndrome Status: Acute (9) History of partial hysterectomy Status: Acute (10) Hx of bladder repair surgery Status: Acute (11) Hx of colonoscopy Status: Acute (12) Hypokalemia Status: Acute (13) Nausea Status: Acute (14) Near syncope Status: Acute (15) Sciatic leg pain Status: Acute (16) Anxiety Status: Chronic (17) Hypertension Status: Chronic Past Medical History - Allergies and Home Meds Allergies/Adverse Reactions: Allergies No Known Allergies Allergy (Verified 02/22/19 02:37) Primary Care Physician: Jaswinder Rosen MD [Primary Care Provider] - Prior records reviewed: Yes Past Medical History: - - Reviewed, see problem list Surgical History: cholecystectomy Smoking Status: Never smoker Alcohol: None Drugs: None - Family History Maternal Family History: Family History (Last Reviewed 02/19/19 @ 14:31 by Eden Bynum) Mother Arthritis Heart disease Hypertension Family History: Reports: No pertinent history Review of Systems General: Denies: Chills, Fever, Sweats Eyes: Denies: Visual changes - bilaterally, Diplopia ENT: Denies: Rhinorrhea, Sore throat Cardiovascular: Denies: Chest pain, Palpitations Respiratory: Denies: Dyspnea, Cough, Dyspnea on exertion Gastrointestinal: Reports: Abdominal pain. Denies: Nausea, Vomiting, Diarrhea, Melena, Hematochezia Genitourinary: Reports: - - See HPI. Denies: Dysuria, Hematuria, Frequency Musculoskeletal: Denies: Back pain, Extremity Pain Skin: Denies: Rash, Wounds Neurological: Denies: Headache, Weakness, Numbness Physical Exam Vital Signs/Narrative: Vital Signs Temp Pulse Resp BP Pulse Ox 02/22/19 02:38 98.3 F 82 15 174/84 H 99 General: Well nourished, Well developed, No Acute Distress Head: Normocephalic, Atraumatic Eyes: Perrl, EOMI ENT: Moist mucous membranes, No rhinorrhea Neck: Supple, Nontender Cardiovascular: Regular rate, Regular rhythm, No murmurs Respiratory: No distress, CTA bilaterally, Chest nontender Abdomen: Soft, Nondistended, Normal bowel sounds, Tender - The suprapubic region has some mild tenderness and fullness. Surgical incisions clean dry and intact. Negative for: Nontender Back: Nontender, Normal Inspection Extremities: Nontender, No edema Skin: Normal color, No rash Neurological: Alert, Oriented x3, Cranial nerves II-XII grossly intact, Normal Strength, Normal Sensation Psychological: Normal affect, Normal Mood Diagnostic/Tx/Re-eval - Medical Decision Making Rincon catheter placed. 900 cc of urine out. Patient felt back to baseline. She wants to leave the catheter in and follow-up with her family doctor in 2 days to have it removed. I did offer removal now and she wants to hold off and give her bladder time to recover. I think this is appropriate. She will follow-up as an outpatient I do not feel she has an infection. She just had surgery today. ED Disposition - Plan for ED Patient: Disposition: [facility] Hospital [facility] Unit Diagnosis: Acute urinary retention Instructions: URINARY RETENTION, Female Referrals: Jaswinder Rosen MD [Primary Care Provider] -
[2019-02-22 03:35] VITALS: PULSE 89; RESP 20
== END 2019-02-22 03:43 ==
PROVIDERS: Emergency Provider Emergency Medicine; Family Provider Family Medicine; PCP Family Medicine
DX: R33.9 Retention of urine, unspecified (principal); F41.9 Anxiety disorder, unspecified; I10 Essential (primary) hypertension; K21.9 Gastro-esophageal reflux disease without esophagitis; K58.9 Irritable bowel syndrome, unspecified; Z90.49 Acquired absence of other specified parts of digestive tract
CPT/HCPCS: 51702; 99283

== ENCOUNTER → 2019-04-24 09:39 | Outpatient (CLI) | payer MEDICARE, OTHER, SELFPAY ==
[2019-04-24 12:32] LABS: Absolute Lymphocyte Count 1.26 X10^3/uL (0.83-4.51); Absolute Neutrophil Count 2.8 X10^3/uL (2.0-7.7); Basophil# 0.06 X10^3/uL; Basophil% 1.2 % (0-1); Eosinophils% 6.1 % (0-5); Hematocrit 42.6 % (37-47); Lymphocyte # 1.26 X10^3/ul (4.0); Lymphocyte % 25.6 % (19-41); Mean Corp Hgb Conc 32.9 g/dL (32-36); Mean Corpuscular Hgb 28.9 pg (27.0-32.0); Mean Corpuscular Volume 87.8 fL (81-99); Mean Platelet Vol. 10.8 fl (6.2-12.0); Monocyte# 0.49 X10^3/uL; NRBC Flagged by Analyzer 0 % (0-5); Neutrophil % 56.9 % (47-70); Platelet Count 213 K/mm3 (150-450); RBC Distribution Width CV 12.9 % (11.6-14.6); RBC Distribution Width SD 41.2 fl (35.1-43.9); Red Blood Count 4.85 M/mm3 (4.2-5.4); White Blood Count 4.9 K/mm3 (4.4-11.0)
[2019-04-24 13:05] LABS: Anion Gap 5 (5-15); BUN 15 mg/dL (7-18); BUN/Creat Ratio 21.2 RATIO (10-20); Calcium,Total 9.8 mg/dL (8.5-10.1); Chloride 103 mmol/L (98-107); Cholesterol 202 mg/dL (200); Creatinine, Serum 0.71 mg/dL (0.55-1.02); EST Glomerular Filtration Rate 86 mL/min (>60); Est Glom Filt Rate - Afr Amer 104 mL/min (>60); Glucose 91 mg/dL (74-106); High Density Lipoprotein 99 mg/dL; Potassium 3.9 mmol/L (3.5-5.1); Sodium Level 137 mmol/L (136-145); Thyroid Stim Hormone (TSH) 0.02 uIU/mL (0.358-3.74); Triglycerides 66 mg/dL; Very Low Density Lipoprotein 13 mg/dL (5-40)
[2019-04-25 09:10] LABS: Free T3 3.9 pg/mL (2.18-3.98); T4 Free Direct 1.19 ng/dL (0.76-1.46)
== END ==
PROVIDERS: Family Provider Family Medicine; PCP Family Medicine; Referring Provider Family Medicine; Visit Provider Family Medicine
DX: I10 Essential (primary) hypertension (principal); R53.83 Other fatigue
CPT/HCPCS: 36415; 80048; 80061; 84439; 84443; 84481; 85025

== ENCOUNTER → 2019-04-30 08:01 | Outpatient (CLI) | payer MEDICARE, OTHER, SELFPAY ==
--- NOTE | 2019-04-30 08:07 | RAD_ITS ---
STUDY: X-RAY - ESOPHAGUS (BARIUM SWALLOW) WITH FLUOROSCOPY REASON FOR EXAM: Female, 73 years old. Dysphagia with solids. TECHNIQUE: 18 view(s) of the esophagus were obtained following swallowing of barium. FLUOROSCOPY TIME (if supplied): (0:48) minutes/seconds COMPARISON: None. FINDINGS: There is no demonstrated esophageal foreign body. There is no demonstrated stricture or mucosal abnormality. Normal gastroesophageal junction, without a demonstrated hiatal hernia. The patient ingested a 12 mm tablet of barium without any difficulty. Normal visualized aortic arch and descending thoracic aorta. Normal visualized pulmonary parenchyma. There are diffuse degenerative changes of the visualized thoracic spine. RAD/Esophagus Only IMPRESSION: Normal plain film x-ray examination (barium swallow) of the esophagus. Electronically Signed: Preston He, at 8:24 EDT , Service support ,
== END ==
PROVIDERS: Family Provider Family Medicine; PCP Family Medicine; Referring Provider Family Medicine; Visit Provider Family Medicine
DX: R13.10 Dysphagia, unspecified (principal)
CPT/HCPCS: 74220

== ENCOUNTER → 2019-05-01 12:12 | Outpatient (CLI) | payer MEDICARE, OTHER, SELFPAY ==
--- NOTE | 2019-05-01 12:18 | US_ITS ---
STUDY: THYROID ULTRASOUND REASON FOR EXAM: Female, 73 years old. Hyperparathyroidism. TECHNIQUE: Ultrasound evaluation of the thyroid was performed with real-time and static good-scale imaging. COMPARISON: None. FINDINGS: RIGHT LOBE: The right lobe of the thyroid gland measures 5.9 x 2.1 x 2.5 cm. There is a homogeneous echotexture. Within the right thyroid lobe there are several hypoechoic nodules with well corticated rim, scattered within the upper and lower pole and largest measuring 1.4 x 0.7 x 0.5 cm. Some of the nodules to be minimal cystic degenerative changes. LEFT LOBE: The left lobe of the thyroid gland measures 5.4 x 2.3 x 2.6 cm. There is a homogeneous echotexture. Within the left thyroid lobe there are 4 nodules identified, some of the small nodules revealing cystic component. Some of the solid nodules reveals a hypoechoic rim in largest measuring 0.5 x 0.5 cm and 0.7 x 0.4 cm. The margins are regular with peripheral and central color flow. ISTHMUS: The isthmus measures 5 mm. The regional lymph nodes are normal. US/Thyroid IMPRESSION: Bilateral thyroid lobes as described above and morphology favoring benign process. Note to be made that benign versus malignant process cannot be adequately determined without microscopic evaluation or documentation of stability. If indicated, ultrasound in 6-8 months recommended to assess stability. Electronically Signed: Johana Rodriguez MD at 4:19 EDT , Service support ,
== END ==
PROVIDERS: Family Provider Family Medicine; PCP Family Medicine; Referring Provider Family Medicine; Visit Provider Family Medicine
DX: E05.90 Thyrotoxicosis, unspecified without thyrotoxic crisis or storm (principal)
CPT/HCPCS: 76536

== ENCOUNTER → 2019-07-24 11:18 | Outpatient (CLI) | payer MEDICARE, OTHER, SELFPAY | LOC: LABSPEC 11:22 | PROVIDERS: PCP Family Medicine; Referring Provider Nurse Practitioner Adult Health; Visit Provider Nurse Practitioner Adult Health | DX: N30.21 Other chronic cystitis with hematuria (principal) | CPT/HCPCS: 87086 ==

== ENCOUNTER → 2019-09-03 08:08 | Outpatient (CLI) | payer MEDICARE, OTHER, SELFPAY ==
--- NOTE | 2019-09-03 08:12 | BI_ITS ---
MAMMOGRAPHY - BILATERAL SCREENING REASON FOR EXAM: Female, 73 years old. Routine annual screening examination. PERTINENT HISTORY: Non-contributory. TECHNIQUE: Digital bilateral breast wisam (3D mammographic acquisition) in the CC and MLO projections. 2-D mediolateral oblique (MLO) and craniocaudad (CC) views of both breasts were obtained. CAD: Full Field Digital Mammography with Computer Added Detection was performed. COMPARISON: Comparison is made with prior study dated August 17, 2018 and October 04, 2016. FINDINGS: Breast Composition: The breasts are extremely dense, which lowers the sensitivity of mammography. There are no dominant masses or suspicious calcifications. No other significant abnormalities are identified. There has been no significant change since the prior study. BI/SCREEN MAMM (CAD) W/WISAM BILAT IMPRESSION: Stable bilateral screening mammogram. Yearly follow-up mammogram recommended. (A) ASSESSMENT CATEGORY: BIRADS Category 1: Negative. A letter regarding these results will be sent to the patient by the facility within 30 days. Approximately 10% of breast cancers are not detected by mammography. A normal mammogram should not delay biopsy of a clinically suspicious abnormality. [id number] Electronically Signed: Preston He, at 9:28 EST , Service support ,
== END ==
PROVIDERS: PCP Family Medicine; Referring Provider Family Medicine; Visit Provider Family Medicine
DX: Z12.31 Encounter for screening mammogram for malignant neoplasm of breast (principal)
CPT/HCPCS: 77063; 77067

== ENCOUNTER → 2019-10-24 08:25 | Outpatient (CLI) | payer MEDICARE, OTHER, SELFPAY ==
--- NOTE | 2019-10-24 09:04 | RAD_ITS ---
STUDY: X-RAY - THORACIC SPINE REASON FOR EXAM: Female, 74 years old. PAIN IN LOWER THORACIC FOR ABOUT 2 MONTHS NOW. NO KNOWN INJURY. TECHNIQUE: 2 view(s) of the thoracic spine were obtained. COMPARISON: None. FINDINGS: There is an increase in the normal thoracic kyphosis. There is no substantial scoliosis. There is demineralization of the thoracic spine with endplate spondylosis. There is multilevel disc space narrowing of the thoracic spine. The soft tissue structures are unremarkable. RAD/Thoracic Spine 2 Views IMPRESSION: Multilevel disc space narrowing and spondylosis as well as osteopenia. Electronically Signed: Preston He, at 10:10 EDT , Service support ,
[2019-10-24 10:19] LABS: Anion Gap 4 (5-15); BUN 19 mg/dL (7-18); Calcium,Total 9.4 mg/dL (8.5-10.1); Chloride 100 mmol/L (98-107); Cholesterol 226 mg/dL (200); Creatinine, Serum 0.73 mg/dL (0.55-1.02); EST Glomerular Filtration Rate 83 mL/min (>60); Est Glom Filt Rate - Afr Amer 100 mL/min (>60); Glucose 92 mg/dL (74-106); High Density Lipoprotein 104 mg/dL; Potassium 3.4 mmol/L (3.5-5.1); Sodium Level 137 mmol/L (136-145); Triglycerides 74 mg/dL; Very Low Density Lipoprotein 15 mg/dL (5-40)
== END ==
PROVIDERS: PCP Family Medicine; Referring Provider Family Medicine; Visit Provider Family Medicine
DX: I10 Essential (primary) hypertension (principal); M54.9 Dorsalgia, unspecified
CPT/HCPCS: 36415; 72070; 80048; 80061

== ENCOUNTER → 2019-12-25 12:17 | Outpatient (CLI) | payer MEDICARE, OTHER, SELFPAY ==
--- NOTE | 2019-12-25 12:20 | US_ITS ---
STUDY: THYROID ULTRASOUND REASON FOR EXAM: Female, 74 years old. NODULES TECHNIQUE: Ultrasound evaluation of the thyroid was performed with real-time and static good-scale imaging. COMPARISON: Thyroid ultrasound dated May 01, 2019. FINDINGS: RIGHT LOBE: The right lobe of the thyroid gland measures 5.4 x 2.2 x 2.6 compared to prior measurement of 5.9 x 2.1 x 2.5 cm. There is a heterogeneous echotexture. Diffuse nodularity and heterogeneity of the thyroid parenchyma compatible with multinodular quarter. The largest dominant nodule is 1 cm in diameter. LEFT LOBE: The left lobe of the thyroid gland measures 5.3 x 2.4 x 2.6 cm compared to the prior measurement of 5.4 x 2.3 x 2.6 cm, indicating no interval change. There is a heterogeneous echotexture. Diffuse nodularity and heterogeneity of the parenchyma unchanged from the prior study with the dominant nodule measuring 1.1 cm. ISTHMUS: The isthmus measures 4 mm. US/Thyroid IMPRESSION: Multinodular goiter of the thyroid gland. The right lobe is slightly smaller in size compared to the prior measurement Electronically Signed: Nakul Yen MD at 23:53 EDT , Service support ,
== END ==
PROVIDERS: PCP Family Medicine; Referring Provider Family Medicine; Visit Provider Family Medicine
DX: E04.1 Nontoxic single thyroid nodule (principal)
CPT/HCPCS: 76536

== ENCOUNTER 2020-02-04 05:00 | Observation (INO) | payer MEDICARE, OTHER, SELFPAY ==
[2020-02-04 05:01] VITALS: BP 138/94; PULSE 74; RESP 13; TEMP 36.7; O2SAT 97; BMI 19.4
--- NOTE | 2020-02-04 05:08 | EKG12_ITS ---
Test Reason : CP Blood Pressure : / mmHG Vent. Rate : 074 BPM Atrial Rate : 074 BPM P-R Int : 122 ms QRS Dur : 076 ms QT Int : 414 ms P-R-T Axes : -28 076 028 degrees QTc Int : 459 ms Normal sinus rhythm Low voltage QRS (Limb Leads) Confirmed by NATASHA ROSALES, ABIODUN ([id number]), photograph editor DARRON HORN ([id number]) on 02/10/2020 9:09:55 AM Referred By: LATOYA Confirmed By:ABIODUN KAUR MD
--- NOTE | 2020-02-04 05:08 | RAD_ITS ---
STUDY: X-RAY CHEST REASON FOR EXAM: Female, 74 years old. chest pain TECHNIQUE: Single AP portable view of the chest. COMPARISON: 01/25/2019. FINDINGS: The lungs are clear and expanded. There is no demonstrated pleural abnormality. Normal size heart. Normal mediastinum and nahun. Normal visualized pulmonary arteries. Normal visualized aortic arch and descending thoracic aorta. There are multilevel degenerative changes in the thoracic spine. Normal visualized ribs, clavicles, and shoulders. There is no demonstrated abnormality of the visualized soft tissue structures of the upper abdomen. RAD/Chest 1 View (Portable) IMPRESSION: No evidence for acute cardiopulmonary pathology. Electronically Signed: Akash Gagnon MD at 5:50 EDT , Service support ,
--- NOTE | 2020-02-04 05:08 | ED.DCSUM_ITS ---
History of Present Illness Chief Complaint: Chest Pain Informant: Patient Narrative: 74-year-old female presenting with chest pain which started about 4 AM this morning. Its that it goes directly across her chest from side to side. She said it was fairly constant until she got to the emergency room and states now it is settling down. She describes it as sharp. She does not have shortness of breath. She does not have a cough. She is not had a fever or chills. She does state that she had some chest pain for about 20 minutes on Monday as well. She states that it was more right-sided initially and then went across her chest. She states that she was not diaphoretic, nauseous, lightheaded, short of breath with the episode. She also does states she has a history of anxiety but does not take anything for anxiety anymore. She does not believe this is from anxiety. No history of DVT/PE. Identifiable DVT/PE risk factors. She states she only takes medication for hypertension. Stress test was in 2017. Past Medical History - Allergies and Home Meds Allergies/Adverse Reactions: Allergies No Known Allergies Allergy (Verified 02/04/20 05:04) Primary Care Physician: Jaswinder Rosen MD [Primary Care Provider] - Prior records reviewed: Yes Surgical History: cholecystectomy Lives: Spouse/ Significant Other Smoking Status: Never smoker Alcohol: None Drugs: None - Family History Maternal Family History: Family History (Last Reviewed 02/28/19 @ 09:29 by Eden Bynum) Mother Arthritis Heart disease Hypertension Family History: Reports: No pertinent history Review of Systems General: Denies: Chills, Fever Eyes: Denies: Visual changes - bilaterally, Diplopia ENT: Denies: Rhinorrhea, Sore throat Cardiovascular: Reports: Chest pain Respiratory: Denies: Dyspnea, Cough Gastrointestinal: Denies: Abdominal pain, Nausea, Vomiting Genitourinary: Denies: Dysuria Musculoskeletal: Denies: Myalgias Skin: Denies: Rash Neurological: Denies: Headache, Weakness Physical Exam Vital Signs/Narrative: Vital Signs Temp Pulse Resp BP Pulse Ox 02/04/20 05:01 98.1 F 74 13 138/94 H 97 General: Well nourished, No Acute Distress Head: Normocephalic, Atraumatic Eyes: Perrl, EOMI ENT: Moist mucous membranes Cardiovascular: Regular rate, Regular rhythm Respiratory: No distress, CTA bilaterally, Chest nontender Abdomen: Soft Extremities: Nontender, No edema Skin: Normal color Neurological: Alert, Oriented x3 Psychological: Normal affect Diagnostic/Tx/Re-eval Clinical Impression(s) from Imaging Studies Chest X-Ray 02/04/20 05:08 IMPRESSION: No evidence for acute cardiopulmonary pathology. Electronically Signed: Akash Gagnon MD at 5:50 EDT , Service support , Laboratory Data 02/04/20 02/04/20 02/04/20 05:08 05:08 05:08 WBC 5.6 RBC 4.71 Hgb 14.0 Hct 42.8 MCV 90.9 MCH 29.7 MCHC 32.7 RDW Std Deviation 42.3 RDW Coeff of Jose Juan 12.9 Plt Count 229 MPV 9.9 Immature Gran % (Auto) 0.200 Neut % (Auto) 48.9 Lymph % (Auto) 32.2 [place] % (Auto) 10.6 H Eos % (Auto) 7.2 H Baso % (Auto) 0.9 Absolute Neuts (auto) 2.7 Absolute Lymphs (auto) 1.79 Nucleated RBC % 0 D-Dimer Quant (PE/DVT) 0.33 Sodium 141 Potassium 3.5 Chloride 106 Carbon Dioxide 32.0 Anion Gap 3 L BUN 13 Creatinine 0.76 Estim Creat Clear Calc 43.27 Est GFR (MDRD) Af Amer 95 Est GFR (MDRD) Non-Af 79 BUN/Creatinine Ratio 17.0 Glucose 95 Calcium 9.3 Troponin I < 0.015 - Rhythm Strip Rhythm Strip: Sinus Rhythm Rate: 74 - EKG Initial EKG Interpretation: Sinus Rhythm, No Acute Injury Pattern Prior: Unchanged - Medical Decision Making Patient presents with second episode of chest pain in the last couple of days. She is concerned that it is cardiac in nature. She has no cardiac history. Last stress test was 3 years ago. Patient's EKG was unchanged from her previous EKG. Her chest x-ray is negative. Troponin is negative. D-dimer is negative. Her vital signs are stable. She does have a heart score of 4. I did discuss this with the patient and the hospitalist. Patient wished to be admitted. Hospitalist accepted admission. Patient was given aspirin in the ED. ED Disposition - Plan for ED Patient: Referrals: Jaswinder Rosen MD [Primary Care Provider] -
[2020-02-04 05:15] LABS: Absolute Lymphocyte Count 1.79 X10^3/uL (0.83-4.51); Absolute Neutrophil Count 2.7 X10^3/uL (2.0-7.7); Basophil# 0.05 X10^3/uL; Basophil% 0.9 % (0-1); Eosinophils% 7.2 % (0-5); Hematocrit 42.8 % (37-47); Lymphocyte # 1.79 X10^3/ul (4.0); Lymphocyte % 32.2 % (19-41); Mean Corp Hgb Conc 32.7 g/dL (32-36); Mean Corpuscular Hgb 29.7 pg (27.0-32.0); Mean Corpuscular Volume 90.9 fL (81-99); Mean Platelet Vol. 9.9 fl (6.2-12.0); Monocyte# 0.59 X10^3/uL; Monocyte% 10.6 % (0-10); NRBC Flagged by Analyzer 0 % (0-5); Neutrophil # 2.72 X10^3/uL (2.7-7.7); Neutrophil % 48.9 % (47-70); Platelet Count 229 K/mm3 (150-450); RBC Distribution Width CV 12.9 % (11.6-14.6); RBC Distribution Width SD 42.3 fl (35.1-43.9); Red Blood Count 4.71 M/mm3 (4.2-5.4); White Blood Count 5.6 K/mm3 (4.4-11.0)
[2020-02-04] MEDS: Aspirin 81 MG TAB.CHEW 324 MG PO (05:18)
[2020-02-04 05:27] LABS: D-Dimer Quantitative (DVT/PE) 0.33 FEU/ug/m (0.27-0.49)
[2020-02-04 05:38] LABS: Anion Gap 3 (5-15); BUN 13 mg/dL (7-18); Calcium,Total 9.3 mg/dL (8.5-10.1); Chloride 106 mmol/L (98-107); Creatinine, Serum 0.76 mg/dL (0.55-1.02); EST Glomerular Filtration Rate 79 mL/min (>60); Est Glom Filt Rate - Afr Amer 95 mL/min (>60); Estimated Creatinine Clearance 43.27 ml/min; Glucose 95 mg/dL (74-106); Potassium 3.5 mmol/L (3.5-5.1); Sodium Level 141 mmol/L (136-145)
--- NOTE | 2020-02-04 06:01 | PCM.HP.STD ---
Problem List (1) Chest pain Status: Acute (2) Hx of cholecystectomy Status: Chronic Comment: 02/21/19 (3) Hx of colonoscopy Status: Chronic (4) Hx of bladder repair surgery Status: Chronic (5) History of partial hysterectomy Status: Chronic (6) History of irritable bowel syndrome Status: Chronic (7) Hypertension Status: Chronic Qualifiers: (8) Anxiety Status: Chronic History of Present Illness Date of Admission: 02/04/20 Chief Complaint: chest pain The patient is a 74 year old F with a significant history of hypertension anxiety disorder who presented with chest pain that started few hours before presentation. Her chest pain spun across her entire chest. Her chest pain is severe. She denies any ameliorating or aggravating factors to the chest pain. She denies any nausea, vomiting, shortness of breath or diaphoresis. A day before her presentation she had a chest pain that went to her neck and to her right scapula. The chest pain lasted for about 15 minutes and disappeared. Her last stress test was in 2016. Past Medical History Past Medical History (Chronic Problems): Chronic Problems (Last Reviewed 02/04/20 @ 07:[address] Bryant Montes MD) Hx of cholecystectomy (Chronic) 02/21/19 Hx of colonoscopy (Chronic) Hx of bladder repair surgery (Chronic) History of partial hysterectomy (Chronic) History of irritable bowel syndrome (Chronic) Hypertension (Chronic) Anxiety (Chronic) Medical History: Medical History (Last Reviewed 02/04/20 @ 07:[address] Bryant Montes MD) Biliary dyskinesia (Inactive) K82.8 Acute cholecystitis (Inactive) K81.0 Gastroenteritis (Inactive) K52.9 GERD (gastroesophageal reflux disease) (Inactive) K21.9 History of irritable bowel syndrome (Chronic) Z87.19 Sciatic leg pain (Inactive) M54.30 Nausea (Inactive) R11.0 Hypokalemia (Inactive) E87.6 Acute chest pain (Inactive) R07.9 Chest pain (Inactive) R07.9 Hypertension (Chronic) I10 Near syncope (Inactive) Altered mental status (Inactive) R41.82 Anxiety (Chronic) F41.9 Allergies No Known Allergies Allergy (Verified 02/04/20 05:04) Home Medications: Ambulatory Orders Medication Instructions Recorded Aspirin E.C. [Ecotrin] 81 mg PO QODAY 02/16/16 Multivitamin [Multiple Vitamins] 1 ea PO DAILY 08/22/16 Clonazepam [Klonopin] 0.5 mg PO Q8H PRN PRN 12/13/18 triamterene 37.5 1 tab PO DAILY 02/19/19 mg-hydrochlorothiazide 25 mg tablet Surgical History: Surgical History (Last Reviewed 02/28/19 @ 09:29 by Eden Bynum) Hx of cholecystectomy (Chronic) Z90.49 02/21/19 Hx of colonoscopy (Chronic) Z98.890 Hx of bladder repair surgery (Chronic) Z98.890 History of partial hysterectomy (Chronic) Z90.711 Surgical History: cholecystectomy Lives: Spouse/ Significant Other Smoking Status: Never smoker Alcohol: None Drugs: None - *Family History Maternal Family History: Family History (Last Reviewed 02/04/20 @ 07:[address] Bryant Montes MD) Mother Arthritis Heart disease Hypertension History Items: No pertinent history Review of Systems Constitutional: Denies: Chills, Fever, Weight Change HEENT: Denies: Head Aches, Sinus Congestion, Sinus Drainage Cardiovascular: Reports: Chest Pain. Denies: Palpitations Respiratory: Denies: Cough, Shortness of breath at rest, Sputum production Gastrointestinal: Denies: Abdominal Pain, Nausea, Vomiting Genitourinary: Denies: Dysuria Musculoskeletal: Denies: Joint Pain, Joint Tenderness Skin: Denies: Rash, Wounds Neurological: Denies: Numbness, Tingling, Focal weakness Psychiatric: Denies: Anxiety, Depression, Homicidal Ideations, Suicidal Ideations Hematologic/ Lymphatic: Denies: Easy Bruising, Easy Bleeding VTE Information - Inpt Only VTE Present on Admission: No VTE Mechan Device Prophylaxis: SCD's VTE Pharm Prophylaxis ordered?: No Patient Problems: Active and Suspected Problems (Last Reviewed 02/04/20 @ 07:[address] Bryant Montes MD) Chest pain (Acute) - Physical Exam Vitals/I&O's: Vital Signs Temp Pulse Resp BP Pulse Ox 98.1 F 74 13 138/94 H 97 02/04/20 05:01 02/04/20 05:01 02/04/20 05:01 02/04/20 05:01 02/04/20 05:01 Oxygen Delivery Method Room Air Weight: 54.7 kg Body Mass Index (BMI) 19.4 Finger Stick Blood Glucose 88 General: Alert, Oriented x3, Cooperative HEENT: Atraumatic, PERRLA, EOMI, Normocephalic Neck: Supple, No JVD, Negative Carotid Bruits Lungs: Clear to auscultation, Normal air movement Cardiovascular: Regular rate, No murmurs Abdomen: Bowel Sounds Present, Soft, Non Tender Extremities: No edema, Capillary Refill Less than 3 Seconds Skin: No rashes, No breakdown Musculoskeletal: No Tenderness to Palpation of Joints or Extremities Neurological: Cranial nerves II-XII grossly intact Psych/Mental Status: Normal Affect, Appropriate Laboratory Results 02/04/20 05:08: WBC 5.6, RBC 4.71, Hgb 14.0, Hct 42.8, MCV 90.9, MCH 29.7, MCHC 32.7, RDW Std Deviation 42.3, RDW Coeff of Jose Juan 12.9, Plt Count 229, MPV 9.9, Immature Gran % (Auto) 0.200, Neut % (Auto) 48.9, Lymph % (Auto) 32.2, [place] % (Auto) 10.6 H, Eos % (Auto) 7.2 H, Baso % (Auto) 0.9, Absolute Neuts (auto) 2.7, Absolute Lymphs (auto) 1.79, Nucleated RBC % 0 02/04/20 05:08: D-Dimer Quant (PE/DVT) 0.33 02/04/20 05:08: Sodium 141, Potassium 3.5, Chloride 106, Carbon Dioxide 32.0, Anion Gap 3 L, BUN 13, Creatinine 0.76, Estim Creat Clear Calc 43.27, Est GFR (MDRD) Af Amer 95, Est GFR (MDRD) Non-Af 79, BUN/Creatinine Ratio 17.0, Glucose 95, Calcium 9.3, Troponin I < 0.015 Assessment/Plan All Active Problems (Last Reviewed 02/04/20 @ 07:[address] Bryant Montes MD) Chest pain (Acute) The patient is a 74 year old F with a significant history of hypertension anxiety disorder who presented with chest pain Chest pain Place on a monitored bed at u Actual CXR image was independently visualized: No acute cardiopulmonary process was noted. Actual EKG tracing was independently visualized. EKG tracing showed sinus rhythm Review of old record showed that patient had a stress test on 06/13/2017. The stress test showed a peak recovery ECG demonstrating approximately 0.5 mm horizontal/upsloping ST segment depression in leads II; III aVF, V5 and V6. Aspirin 324 mg ordered at the ED. ASA 81 mg p.o. daily ordered Morphine as needed for pain ordered We will check lipid panel. Serial cardiac enzymes ordered Stat EKG as needed for chest pain Stress test in the AM if the cardiac enzymes are negative Anxiety disorder PRN Klonopin continued. Of note patient reported that it has been a long time since she took her Klonopin. DVT SCD in the setting of cardiac work-up for chest pain Miscellaneous: Patient has an outpatient CT scan scheduled for groin hernia. An outpatient CT scan is scheduled for 02/04/2020. Communication to have patient reschedule a CT after discharge. OBSV E&M: 69057 Initial observation care L3
[2020-02-04 06:33] VITALS: BP 132/79; PULSE 71; RESP 16; TEMP 36.5; O2SAT 100
[2020-02-04 06:48] VITALS: BMI 19.2
[2020-02-04 06:50] VITALS: BP 137/74; PULSE 69; RESP 16; TEMP 36.7; O2SAT 100
[2020-02-04 06:51] VITALS: PULSE 66
--- NOTE | 2020-02-04 06:56 | EKG12_ITS ---
Test Reason : CP Blood Pressure : / mmHG Vent. Rate : 062 BPM Atrial Rate : 062 BPM P-R Int : 144 ms QRS Dur : 078 ms QT Int : 440 ms P-R-T Axes : 065 067 038 degrees QTc Int : 446 ms Normal sinus rhythm Normal ECG When compared with ECG of 04-FEB-2020 05:04, MANUAL COMPARISON REQUIRED, DATA IS UNCONFIRMED Confirmed by WILEY ROSALES, GRISEL ([id number]), restaurant expeditor CHRIS MOTA ([id number]) on 02/06/2020 3:55:34 PM Referred By: MARJ Confirmed By:GRISEL JAMA MD
[2020-02-04 07:57] LABS: Cholesterol 202 mg/dL (200); High Density Lipoprotein 110 mg/dL; Triglycerides 54 mg/dL; Very Low Density Lipoprotein 11 mg/dL (5-40)
[2020-02-04 13:04] VITALS: BP 146/73; PULSE 78; RESP 14; TEMP 36.7; O2SAT 100
--- NOTE | 2020-02-04 13:09 | STRESSREP ---
Stress Test Report Date: 02-04-2020 Procedure: Exercise tolerance test/imaging study Indications: Chest pain Consent: Per the patient Procedure: The patient exercised on a Kit protocol for 5 minutes and 17 seconds completing Stage I and 2 minutes and 17 seconds of Stage II achieving a peak heart rate of 131 bpm (89 % predicted maximal heart rate) with a peak blood pressure 148/70 mmHg and a peak MET capacity of 7 METs. The baseline ECG demonstrated normal sinus rhythm; nonspecific ST segment abnormality. The peak exercise ECG demonstrated somatic/motion artifact with no obvious ECG changes. There were no cardiac dysrhythmias pretest, during exercise, or recovery. The functional capacity was considered average. There was no complaint of chest discomfort during exercise or recovery. The examination was discontinued secondary to dyspnea. Impression: 1. Technically adequate (percent predicted maximal heart rate greater than 85%) exercise tolerance test 2. Peak exercise ECG demonstrated somatic/motion artifact with no obvious ECG changes 3. There were no cardiac dysrhythmias pretest, during exercise, or recovery 4. Nuclear images pending Myocardial perfusion imaging study: Technique: The patient was injected with 10.6 mCi of technetium 99m Cardiolite and subsequently rest SPECT Cardiolite nuclear imaging was obtained in the horizontal long, vertical long, and short axis views. The patient exercised on a Kit protocol for 5 minutes and 17 seconds completing Stage I and 2 minutes and 17 seconds of Stage II achieving a peak heart rate of 131 bpm (89 % predicted maximal heart rate) with a peak blood pressure 148/70 mmHg and a peak MET capacity of 7 METs. The patient was injected with 32.9 mCi of technetium 99m Cardiolite and subsequently stress SPECT Cardiolite nuclear imaging was obtained in the horizontal long, vertical long, and short axis views. A gated Cardiolite study at peak stress was obtained. Interpretation: Rest and stress SPECT Cardiolite nuclear imaging status post realignment, normalization, and attenuation correction, demonstrates the appearance of relative uniform tracer uptake and myocardial perfusion appearing within normal limits. There is end systolic thickening and brightening. The gated Cardiolite study demonstrates myocardial thickening and inward wall motion. The reported LVEF is 85 %. Impression: 1. Rest and stress SPECT Cardiolite nuclear imaging demonstrate relative uniform tracer uptake and myocardial perfusion appearing within normal limits. 2. The gated Cardiolite study reports an LVEF of 85 %. This note was generated with [employer] software. It may contain incorrect words, spelling, and punctuation that were not noted in checking the note before signing.
--- NOTE | 2020-02-04 13:49 | PCM.DC ---
- Discharge Diagnoses Current Active Problems: Current Active and Chronic Problems (Last Reviewed 02/04/20 @ 07:[address] Bryant oMntes MD) Chest pain (Acute) You will use the following diet at home:: Other - avoid spicy foods. minimize caffeine and alcohol consumption to no more than 1 drink/day. Discharge Activity: Return to Normal Activity Allergies/Adverse Reactions: Allergies No Known Allergies Allergy (Verified 02/04/20 05:04) Medications to take at Discharge Aspirin E.C. [Ecotrin] 81 mg PO QODAY 02/16/16 Multivitamin [Multiple Vitamins] 1 ea PO QODAY 08/22/16 Clonazepam [Klonopin] 0.5 mg PO Q8H PRN PRN 12/13/18 triamterene 37.5 mg-hydrochlorothiazide 25 mg tablet 1 tab PO DAILY 02/19/19 Omeprazole 20 mg PO DAILY #30 tablet. 02/04/20 The following prescriptions were given: Omeprazole 20 mg PO DAILY #30 tablet. Primary Care Physician: Jaswinder Rosen MD [Primary Care Provider] - Within 2 Weeks Test Results: Test results from this visit will be discussed in further detail at your follow-up appointment, if applicable. Please Follow Up With: Pedrito Webb MD When: or another commercial banker in the coming months Proposed Discharge Date: 02/04/20
--- NOTE | 2020-02-04 13:51 | DS.PCM_ITS ---
Discharge Date and Diagnosis - Problem List Patient Problems: Active and Suspected Problems (Last Reviewed 02/04/20 @ 07:[address] Bryant Montes MD) Chest pain (Acute) Date of Admission: 02/04/20 Date of Discharge: 02/04/20 - Primary Discharge Diagnosis Acute Problems: Active Problems (Last Reviewed 02/04/20 @ 07:[address] Bryant Montes MD) Chest pain (Acute) - Secondary Discharge Diagnosis Chronic Problems: Chronic Problems (Last Reviewed 02/04/20 @ 07:[address] Bryant Montes MD) Hx of cholecystectomy (Chronic) 02/21/19 Hx of colonoscopy (Chronic) Hx of bladder repair surgery (Chronic) History of partial hysterectomy (Chronic) History of irritable bowel syndrome (Chronic) Hypertension (Chronic) Anxiety (Chronic) Hospital Course and Treatment Imaging Results: 02/04/20 05:08 Chest 1 View (Portable) [RAD] Stat 02/04/20 10:39 Nuclear Stress Test - Treadmil [NM] Urgent Operations: None Procedures: Stress test Summary of Care Provided: The patient is a 74 year old F presents with midsternal chest pain. Patient has had similar episodes but not this severe and I was concerned and presented to the emergency room. In the emergency room, patient's work-up was unremarkable. Patient was admitted. Patient underwent a nuclear stress test today that was negative for any ischemic injury. Upon further discussion with the patient patient has had a history of Barreto's as well as what sounds like either esophageal stricture or webs or rings that have required dilation. Patient sounds as though she may have reflux as she has endorse that she has had some heartburn type symptoms many times. I advised the patient to get started back on a proton pump inhibitor and recommended omeprazole 20 mg daily. Patient states that she has been on that the past but when she was screened for her Barreto's they eventually did take her off of that. Patient said that her last endoscopy was about 9 years ago. Advised patient follow-up with a senior it assistant in the coming months just for further monitoring. Name of Dr. Webb was provided to her but she may follow-up with any senior it assistant of her choice. Patient discharged in stable condition. [] Patient also has inguinal hernia and is to follow-up with CAT scan on the fifth for further evaluation. Being that it was an acute issue during this admission that was not pursued. Patient Problems: Active and Suspected Problems (Last Reviewed 02/04/20 @ 07:[address] Bryant Montes MD) Chest pain (Acute) - Physical Exam Vitals/I&O's: Vital Signs Temp Pulse Resp BP Pulse Ox 36.7 C 78 14 146/73 H 100 02/04/20 13:04 02/04/20 13:04 02/04/20 13:04 02/04/20 13:04 02/04/20 13:04 Oxygen Delivery Method Room Air Weight: 54.023 kg Body Mass Index (BMI) 19.2 Finger Stick Blood Glucose 88 General: Alert, No apparent distress HEENT: Atraumatic, Normocephalic Oral: Moist Mucosa, No Gingival or Mucosal Lesions/ Ulcerations Neck: No Nodes, Thyroid Normal Size and Texture Lungs: Clear to auscultation, Normal air movement Cardiovascular: Regular rate, Regular Rhythm, Normal S1, Normal S2 Abdomen: Bowel Sounds Present, Soft, Non Tender, Non-Distended Extremities: No edema, No Calf Tenderness Psych/Mental Status: Normal Affect, Appropriate Laboratory Results 02/04/20 05:08: WBC 5.6, RBC 4.71, Hgb 14.0, Hct 42.8, MCV 90.9, MCH 29.7, MCHC 32.7, RDW Std Deviation 42.3, RDW Coeff of Jose Juan 12.9, Plt Count 229, MPV 9.9, Immature Gran % (Auto) 0.200, Neut % (Auto) 48.9, Lymph % (Auto) 32.2, [place] % (Auto) 10.6 H, Eos % (Auto) 7.2 H, Baso % (Auto) 0.9, Absolute Neuts (auto) 2.7, Absolute Lymphs (auto) 1.79, Nucleated RBC % 0 02/04/20 05:08: D-Dimer Quant (PE/DVT) 0.33 02/04/20 05:08: Sodium 141, Potassium 3.5, Chloride 106, Carbon Dioxide 32.0, Anion Gap 3 L, BUN 13, Creatinine 0.76, Estim Creat Clear Calc 43.27, Est GFR (MDRD) Af Amer 95, Est GFR (MDRD) Non-Af 79, BUN/Creatinine Ratio 17.0, Glucose 95, Calcium 9.3, Troponin I < 0.015 02/04/20 07:20: Troponin I < 0.015, Triglycerides 54, Cholesterol 202 H, LDL Cholesterol 81, VLDL Cholesterol 11, HDL Cholesterol 110 02/04/20 10:06: Troponin I < 0.015 02/04/20 13:30: Troponin I Pending Current Medications Acetaminophen (Tylenol) 650 mg PO Q6H PRN PRN PRN Reason: Pain Score 1-10/Temp > 100.7 F Aspirin (Ecotrin) 81 mg PO DAILY@0800 [facility] Clonazepam (Klonopin) 0.5 mg PO Q8H PRN PRN PRN Reason: ANXIETY Morphine Sulfate () 2 mg IV Q3H PRN PRN PRN Reason: Pain Score 6-10/10 Multivitamins (Multivitamin) 1 tablet PO DAILY@0800 [facility] Ondansetron HCl (Zofran) 4 mg IV Q8H PRN PRN PRN Reason: NAUSEA/VOMITING Sodium Chloride () 10 - 40 ml IV UD PRN PRN Reason: SALINE FLUSH Triamterene/HCTZ (Dyazide (G)) 1 cap PO DAILY [facility] Discharge Diet: No Restrictions Discharge Activity: Return to Normal Activity Home Medications: Medications to take at Discharge Aspirin E.C. [Ecotrin] 81 mg PO QODAY 02/16/16 Multivitamin [Multiple Vitamins] 1 ea PO QODAY 08/22/16 Clonazepam [Klonopin] 0.5 mg PO Q8H PRN PRN 12/13/18 triamterene 37.5 mg-hydrochlorothiazide 25 mg tablet 1 tab PO DAILY 02/19/19 Omeprazole 20 mg PO DAILY #30 tablet. 02/04/20 Following Prescriptions Were Given to Patient: Omeprazole 20 mg PO DAILY #30 tablet. Primary Care Physician: Jaswinder Rosen MD [Primary Care Provider] - Within 2 Weeks Please Follow Up With: Pedrito Webb MD When: or another senior it assistant in the coming months Disposition: Home Minutes spent on discharge:: 32 Patient Condition:: Good Medical Necessity - Tobacco Use Smoking Status: Never smoker Tobacco Use: Non-smoker Meaningful Use Info Meaningful Use Diagnoses (Choose all that apply): None applicable OBSV E&M: 39001 Observation care discharge
--- NOTE | 2020-02-04 14:31 | PHA.DC.MC ---
Pharmacy Service has performed discharge medication reconciliation and counseling for this patient. 1. OMEPRAZOLE 20MG PO DAILY The patient's discharge medication list was reviewed for discrepancies and discrepancies were resolved. Home Medications Aspirin E.C. [Ecotrin] 81 mg PO QODAY 02/16/16 Multivitamin [Multiple Vitamins] 1 ea PO QODAY 08/22/16 Clonazepam [Klonopin] 0.5 mg PO Q8H PRN PRN 12/13/18 triamterene 37.5 mg-hydrochlorothiazide 25 mg tablet 1 tab PO DAILY 02/19/19 Omeprazole 20 mg PO DAILY #30 tablet. 02/04/20 The patient was counseled on the following discharge medications and changes in medications for homegoing were reviewed. The Reason for Use, instructions for use, and potential side effects were reviewed for all new medications. The patient's questions regarding all of their medications were answered. The patient was able to verbally demonstrate an understanding of their discharge medications.
== END 2020-02-04 13:50 | disposition home or self-care (01) ==
LOC: ED 05:41 → PCU 06:46
PROVIDERS: Admitting Provider Hospitalist; Emergency Provider Student in an Organized Health Care Education/Training Program; PCP Family Medicine
DX: R07.89 Other chest pain (principal); I10 Essential (primary) hypertension; F41.9 Anxiety disorder, unspecified; K58.9 Irritable bowel syndrome, unspecified; K21.9 Gastro-esophageal reflux disease without esophagitis; Z79.899 Other long term (current) drug therapy; Z79.82 Long term (current) use of aspirin; K40.90 Unilateral inguinal hernia, without obstruction or gangrene, not specified as recurrent
CPT/HCPCS: 36415; 71045; 78452; 80048; 80061; 84484; 85025; 85379; 93005; 93017; 99218; 99285; A9500; A4216; G0378

== ENCOUNTER → 2020-02-05 06:54 | Outpatient (CLI) | payer MEDICARE, OTHER, SELFPAY ==
[2020-02-04 06:48] VITALS: BMI 19.2
--- NOTE | 2020-02-05 06:56 | CT_ITS ---
STUDY: CT ABDOMEN AND PELVIS WITH CONTRAST REASON FOR EXAM: Female, 74 years old. RIGHT GROIN PAIN AND SWELLING X 3 MONTHS. DELAY SET OF IMAGES INCLUDED RADIATION DOSAGE (If Supplied By Facility): CTDIvol = ( 15.18 ) mGy, DLP = ( 528.69 ) mGycm TECHNIQUE: Transaxial images were obtained from the dome of the diaphragm to the symphysis pubis with oral contrast. Oral and amp; IV Readi-CAT and amp; 100mL Isovue-300 was administered. Sagittal and coronal images were reconstructed. Individualized dose optimization techniques were used for this CT. COMPARISON: Comparison is made with prior study dated 02/19/2019. FINDINGS: Stable increased linear densities at the left lung base suggestive of scarring. The visualized portions of the heart are within normal limits. Normal liver. The patient is status post cholecystectomy. Normal spleen. Normal pancreas. Normal bilateral adrenal glands. Normal right kidney. Normal left kidney. Normal visualized stomach. Normal small intestine. Normal colon. The appendix is visualized and appears normal. Normal abdominal aorta. Normal inferior vena cava. Normal retroperitoneum. Normal urinary bladder. There is absence of the uterus consistent with a prior hysterectomy. Stable small ringlike hernia in the right inguinal region measuring 1.2 x 1.2 cm. There are diffuse degenerative changes of the visualized lumbar spine. Stable 7.5 mm fat-containing density in the lower left sacrum. Stable 5 cm left TARLOV cysts sacrum. CT/Abdomen/Pelvis WITH Contrast IMPRESSION: Stable small right inguinal hernia containing fat. The patient is status post cholecystectomy. Stable linear scarring at the left lung base. Electronically Signed: Preston He, at 9:18 EDT , Service support ,
== END ==
PROVIDERS: PCP Family Medicine; Referring Provider Registered Nurse; Visit Provider Registered Nurse
DX: R10.31 Right lower quadrant pain (principal)
CPT/HCPCS: 74177; Q9967; A4216

== ENCOUNTER 2020-02-24 05:24 | Day surgery (SDC) | payer MEDICARE, OTHER, SELFPAY ==
[2020-02-13 06:46] VITALS: BMI 19.7
[2020-02-24 05:44] VITALS: BP 114/70; PULSE 69; RESP 16; TEMP 37.2; O2SAT 100; BMI 19.1
--- NOTE | 2020-02-24 05:46 | HP.PCM_ITS ---
Problem List (1) History of Barreto's esophagus Status: Acute (2) Trouble swallowing Status: Acute Qualifiers: History and Physical Date of Admission: 02/24/20 Intake Visit Reasons: INGUINAL HERNIA Chief Complaint: Chest Pain. Allergies No Known Allergies Allergy (Verified 02/13/20 09:00) Medications Aspirin E.C. [Ecotrin] 81 mg PO QODAY 02/16/16 [History Confirmed 02/13/20] Multivitamin [Multiple Vitamins] 1 ea PO QODAY 08/22/16 [History Confirmed 02/13/20] Clonazepam [Klonopin] 0.5 mg PO Q8H PRN PRN 12/13/18 [History Confirmed 01/31 09/19] triamterene 37.5 mg-hydrochlorothiazide 25 mg tablet 1 tab PO DAILY 02/19/19 [History Confirmed 02/13/20] Omeprazole 20 mg PO DAILY #30 tablet. 02/04/20 [Rx Confirmed 02/13/20] albuterol sulfate 90 mcg/actuation aerosol inhaler 2 puff INHALATION Q6H PRN 02/13/20 [History Confirmed 02/13/20] calcium carbonate-vitamin D3 600 mg calcium-200 unit capsule cap PO 02/13/20 [History] dicyclomine 10 mg capsule 10 mg PO BID 02/13/20 [History Confirmed 02/13/20] meloxicam 7.5 mg tablet 7.5 mg PO DAILY 02/13/20 [History Confirmed 02/13/20] potassium chloride 20 mEq tablet,extended release 20 meq PO DAILY 02/13/20 [History Confirmed 02/13/20] PFSH Family History (Updated 02/13/20 @ 08:59 by Toya Mcgill) Mother Arthritis Heart disease Hypertension Grandfather CVA (cerebral vascular accident) Social History (Updated 02/13/20 @ 09:[address] Arnaldo Henderson MD) Smoking Status: Never smoker second hand exposure: No alcohol intake: never substance use type: does not use what type of physical activity do you participate in: none frequency: does not exercise HPI HPI HPI: 74-year-old female. She is referred by her primary care present Dr. Jaswinder Rosen and a written copy of my surgical consult recommendations will return to him. His initial referral is because of right groin pain and inguinal hernia. She presents today with a couple concerns. She has been having swallowing problems. She states that solid food frequently seems like it gets stuck. She claims that that she has had a previous history of Barreto's esophagus. It is somewhat difficult to interpret when she had her last upper endoscopy diascopy but she thinks it was done when she was in [place]. Apparently she also lived in [place] for a period of time. It seems relatively clear that she has not had one within the past year. On April 30, 2019 she had a barium swallow. That was felt to be normal. On February 05, 2020 because of right groin pain she had a CT scan of the abdomen showing a right inguinal hernia. The patient was evaluated on February 04, 2020 because of upper chest pain. She had a exercise tolerance stress test showing ejection fraction of 85% and no signs of ischemia. She was told at that time that cardiology Dr. Jaswinder Pena suspected possible upper GI source to her pain. Patient also complains of an intermittent bulge in the right groin. It is particularly noticeable when she is standing. It can get very firm and uncomfortable. She noticed it most recently this morning but was able to gently reduce it when she was lying supine. It is of note that I assisted her 1 year ago with a laparoscopic cholecystectomy for cholecystitis. She states that that procedure went well and that she has been well since that time [facility] [address] [place] [address] Abdomen/Pelvis WITH Contrast MR#: [id number]:[id number] Name: MAUREEN BAIRDRep #:[id number] : [id number] 74 From: Preston He MD PCP:Dr. Jaswinder Rosen MD Status:REG CLI Study:Abdomen/Pelvis WITH Contrast Date of Exam:02/05/20 Exam#[id number] Ordering Dr: Carmen Yoder STUDY: CT ABDOMEN AND PELVIS WITH CONTRAST REASON FOR EXAM: Female, 74 years old. RIGHT GROIN PAIN AND SWELLING X 3 MONTHS. DELAY SET OF IMAGES INCLUDED RADIATION DOSAGE (If Supplied By Facility): CTDIvol = ( 15.18 ) mGy, DLP = ( 528.69 ) mGycm TECHNIQUE: Transaxial images were obtained from the dome of the diaphragm to the symphysis pubis with oral contrast. Oral and amp; IV Readi-CAT and amp; 100mL Isovue-300 was administered. Sagittal and coronal images were reconstructed. Individualized dose optimization techniques were used for this CT. COMPARISON: Comparison is made with prior study dated 02/19/2019. FINDINGS: Stable increased linear densities at the left lung base suggestive of scarring. The visualized portions of the heart are within normal limits. Normal liver. The patient is status post cholecystectomy. Normal spleen. Normal pancreas. Normal bilateral adrenal glands. Normal right kidney. Normal left kidney. Normal visualized stomach. Normal small intestine. Normal colon. The appendix is visualized and appears normal. Normal abdominal aorta. Normal inferior vena cava. Normal retroperitoneum. Normal urinary bladder. There is absence of the uterus consistent with a prior hysterectomy. Stable small ringlike hernia in the right inguinal region measuring 1.2 x 1.2 cm. There are diffuse degenerative changes of the visualized lumbar spine. Stable 7.5 mm fat-containing density in the lower left sacrum. Stable 5 cm left TARLOV cysts sacrum. CT/Abdomen/Pelvis WITH Contrast IMPRESSION: Stable small right inguinal hernia containing fat. The patient is status post cholecystectomy. Stable linear scarring at the left lung base. Electronically Signed: Preston He, at 9:18 EDT , Service support , CC: YESSY Yoder; Dr. Jaswinder Rosen MD ~ Student Liaison Officer: Signed HPI HPI HPI: MAUREEN BAIRD, is a 74 F who presents to the office today for Exam Const General: cooperative, healthy appearing, comfortable, no acute distress Nutritional Appearance: average body habitus Orientation: alert, awake HENOH Head: normal to inspection Eyes General: appearance normal, both eyes and all related structures Chest Chest palpation & inspection: normal inspection of the chest Resp Effort & Inspection: normal respiratory effort Auscultation: clear to auscultation bilaterally Cardio Rate: regular rate Rhythm: regular rhythm GI Palpation: soft, no hepatosplenomegaly Auscultation: normal bowel sounds Other: Right groin hernia detected. Difficult to appreciate whether this is an inguinal hernia or femoral hernia. Left side appears to be solid and intact Musc Cervical Spine: normal cervical lordosis Skin General: no rashes or lesions noted Neuro Cognition: normal cognition Extrem General: no calf tenderness Psych Affect: normal affect Assessment & Plan Problems 1. Esophageal dysphagia R13.10 2. Inguinal hernia of right side without obstruction or gangrene K40.90 3. History of Barreto's esophagus Z87.19 Plan 74-year-old female. She has been having increasing problems swallowing. She claims that she has a history of Barreto's. She claims that she is previously remotely had an upper endoscopy with dilatation when she was in [place]. Solid food is giving her troubles. I do not think she has had manometry. I believe however that send in her interest to have a esophagogastroduodenoscopy with possible biopsy or dilatation if indicated. She is aware of the technique, benefit, risk of alternatives. She has had an opportunity to ask and have questions answered and we will schedule. The patient clearly has a symptomatic right groin hernia. I believe that it is an inguinal hernia. I have offered her a laparoscopic repair with mesh. We have discussed the technique, benefit, risk of alternatives. She has had an opportunity to ask and have questions answered and she is interested in pursuing definitive repair. No guarantees of success have been offered. We also will schedule procedure at her discretion. I appreciate the opportunity of continuing to assist with her surgical care Copy: Dr. Jaswinder Henderson M.D., F.A.C.S. Coding Level of Care Code 94308 Diagnoses Esophageal dysphagia R13.10 ??Dysphagia type: esophageal phase Inguinal hernia of right side without obstruction or gangrene K40.90 History of Barreto's esophagus Z87. I have re-examined the patient. There are no clinical changes since date of exam. Procedure Criteria Procedure Type: Elective COVID Risk Discussion: The surgeon/proceduralist and patient have discussed in detail the risk of exposure to and/or potential harm posed by the COVID-19 virus with having a surgery/procedure at this time versus the risk of delaying the surgery/procedure. It is not possible to know either the risk of delaying the surgery or procedure or chance of getting an infection with perfect accuracy, but a joint decision was made between the patient and the surgeon/proceduralist to proceed at this time with the scheduled surgery/procedure as indicated on the consent form.
--- NOTE | 2020-02-24 05:47 | DCINST_ITS ---
Discharge Diet: Light diet - advance as tolerated - if you have questions about your diet instructions, please talk to you doctor. Discharge Activity: May Not Drive - for 3-5 days or while taking narcotic pain medicine. May shower in (days): 1 Lifting Restrictions: 10 pounds Call your doctor if your incision/area has: Continuous Slow Oozing, Sudden Increased Bleeding, Increased Pain/ Swelling, Increased Redness, Foul Smelling Discharge Call your doctor if you observe: Fever of 101 or Higher Suture Line Care: Avoid Pulling/Pushing, Avoid Pinching/Bending Additional Dressing/Incision Instructions:: You may remove your dressing tomorrow morning. You may carefully shower over the surgical glue. The surgical glue should remain in place for approximately 1 week. You may reapply a dry gauze dressing or Band-Aid as needed to protect the incision Allergies/Adverse Reactions: Allergies No Known Allergies Allergy (Verified 02/24/20 05:42) Medications to take at Discharge Aspirin E.C. [Ecotrin] 81 mg PO QODAY 02/16/16 Multivitamin [Multiple Vitamins] 1 ea PO QODAY 08/22/16 Clonazepam [Klonopin] 0.5 mg PO Q8H PRN PRN 12/13/18 triamterene 37.5 mg-hydrochlorothiazide 25 mg tablet 1 tab PO DINNER 02/19/19 dicyclomine 10 mg capsule 10 mg PO BID PRN 02/13/20 meloxicam 7.5 mg tablet 7.5 mg PO DAILY PRN 02/13/20 Primary Care Physician: Jaswinder Rosen MD [Primary Care Provider] - Test Results: Test results from this visit will be discussed in further detail at your follow- up appointment, if applicable. Please Follow Up With: Arnaldo Henderson MD - [phone] When: Call to make an appointment to be seen in about 10 days.
[2020-02-24] MEDS: Lactated Ringers 1,000 ML 100 ML IV (05:57)
--- NOTE | 2020-02-24 06:30 | IMM_PTH ---
PATIENT: MAUREEN BAIRD LOC: EN U#:[id number] AGE/SX: 74/F ROOM: RE02/24/[address]: Dr. Arnaldo Henderson MD : 1945 BED: DIS: 02/24/2020 SPEC #: [id number] RECD: 02/24/20 12:17 STATUS: ADITYA RERegino #: [id number] EZEQUIEL: 02/24/20 06:[address]: Arnaldo Henderson DEPT: IMMUNOHISTOCHEMISTRY RECD BY: Katelyn Marcano ENTERED: 02/24/20 12:17 SP TYPE: IMMUNO OTHR DR: Dr. Jaswinder Rosen MD Tissues: B - Stomach, NOS Procedures: H Pylori (initial) PHYSICIAN & INSTITUTION [place] [address] SPECIMEN INFORMATION: Tissue Source: B - Antrum biopsy Clinical Info: Dysphagia, Barreto's Specimen Number: [id number] CPT code: 33289 METHODOLOGY: Deparaffinized sections of prefer/formalin-fixed tissue or PAP/DQ stained slides are incubated with monoclonal/polyclonal antibodies/oligonucleotide probes. Localization is made via biotin free immunoperoxidase method. Appropriate controls are performed and reacted as expected. Results on target cell population are indicated in the following table: RESULTS: ANTIBODY / CLONE RESULT Block B H Pylori (polyclonal) negative These tests were developed and their performance characteristics determined by [facility]. They may not have been cleared or approved by the U.S. Food and Drug Administration. The FDA has determined that such clearance or approval is not necessary. INTERPRETATION: A. Antrum biopsy: Negative for Helicobacter pylori organisms. AM:rika 02/25/20
--- NOTE | 2020-02-24 06:30 | EGD_PTH ---
PATIENT: MAUREEN BAIRD LOC: EN U#:[id number] AGE/SX: 74/F ROOM: RE02/24/[address]: Dr. Arnaldo Henderson MD : 1945 BED: DIS: 02/24/2020 SPEC #: [id number] RECD: 02/24/20 08:37 STATUS: ADITYA JOSLYN #: [id number] EZEQUIEL: 02/24/20 06:[address]: Arnaldo Henderson DEPT: SURGICAL PATHOLOGY RECD BY: Emerson Guido ENTERED: 02/24/20 09:15 SP TYPE: EGD BIOPSY OT DR: Dr. Jaswinder Rosen MD Tissues: A - Duodenum, NOS B - Gastric mucous membrane C - Esophageal mucous membrane D - Esophageal mucous membrane Procedures: Special Stain Group II Special Stain Group I Surgery Specimen Level IV GMS Stain (control) Alcian Blue/PAS (control) HEADER OPERATION: EGD (MAC) PRE-OP DIAGNOSIS: Dysphagia, Barreto's TISSUE SUBMITTED: A - Duodenum biopsy, B - Antrum biopsy, H. pylori, C - Distal esophagus biopsy, D - Mid esophagus biopsy MICROSCOPIC DIAGNOSIS A. Duodenum, biopsy: No significant pathologic change. No evidence of enteritis. B. Gastric antrum, biopsy: Mild chronic gastritis. See comment. C. Distal esophagus, biopsy: Gastroesophageal junctional mucosa with mild chronic and focal acute inflammation. No evidence of goblet cell metaplasia. Focal changes of reflux. See comment. D. Mid esophagus, biopsy: Fragments of benign squamous mucosa with minimal acute inflammation. Negative for fungal organisms. No evidence of esophagitis. See comment. AM:rika 02/25/20 COMMENT B. The results of immunohistochemistry for Helicobacter pylori will be reported separately ([id number]). C. Alcian blue/PAS stain with matched control supports the above diagnosis. D. GMS stain with matched control was used in the evaluation of this case. MICROSCOPIC DESCRIPTION Slides are reviewed. GROSS DESCRIPTION A - Received in fixative is one container labeled with the patient's name and designated duodenum biopsy. The specimen consists of multiple irregular fragments of light martell soft tissue that in aggregate measure 0.6 x 0.2 x 0.1 cm. The specimen is totally submitted in one cassette. B - Received in fixative is one container labeled with the patient's name and designated antrum biopsy. The specimen consists of one irregular fragment of light martell soft tissue that measures 0.6 x 0.3 x 0.1 cm. The specimen is totally submitted in one cassette. C - Received in fixative is one container labeled with the patient's name and designated distal esophagus biopsy. The specimen consists of multiple irregular fragments of light martell soft tissue that in aggregate measure 2 x 0.5 x 0.1 cm. The specimen is totally submitted in one cassette. D - Received in fixative is one container labeled with the patient's name and designated mid esophagus biopsy. The specimen consists of one irregular fragment of light martell soft tissue that measures 0.7 x 0.2 x 0.1 cm. The specimen is totally submitted in one cassette. / SJ:rg 02/24/20 TC:2 CPT: 62271 x4, 01031, 44053
--- NOTE | 2020-02-24 06:44 | OP.EGD_ITS ---
Patient Name: Diana Plaza Procedure Date: 02/24/2020 6:19 AM Date of : 1945 Age: 74 Procedure: Upper GI endoscopy Indications: Dysphagia Providers: Arnaldo Henderson MD Referring MD: Jaswinder Rosen MD Medicines: See the Anesthesia note for documentation of the administered medications Complications: No immediate complications. Procedure: Pre-Anesthesia Assessment: - Prior to the procedure, a History and Physical was performed, and patient medications and allergies were reviewed. The patient's tolerance of previous anesthesia was also reviewed. The risks and benefits of the procedure and the sedation options and risks were discussed with the patient. All questions were answered, and informed consent was obtained. Prior Anticoagulants: The patient has taken no previous anticoagulant or antiplatelet agents. ASA Grade Assessment: II - A patient with mild systemic disease. After reviewing the risks and benefits, the patient was deemed in satisfactory condition to undergo the procedure. After obtaining informed consent, the endoscope was passed under direct vision. Throughout the procedure, the patient's blood pressure, pulse, and oxygen saturations were monitored continuously. The Endoscope was introduced through the mouth, and advanced to the second part of duodenum. The upper GI endoscopy was accomplished without difficulty. The patient tolerated the procedure well. Scope In: 6:28:38 AM Scope Out: 6:37:51 AM Total Procedure Duration Time 0 hours 9 minutes 13 seconds Findings: There were esophageal mucosal changes suspicious for Barreto's esophagus present at the gastroesophageal junction. The maximum longitudinal extent of these mucosal changes was 1 cm in length. Mucosa was biopsied with a cold forceps for histology. The Z-line was irregular and was found 41 cm from the incisors. Diffuse mildly erythematous mucosa without bleeding was found in the gastric antrum. Biopsies were taken with a cold forceps for histology. The examined duodenum was normal. Biopsies were taken with a cold forceps for histology. The mid esophagus was normal. Biopsies were taken with a cold forceps for histology. Impression: - Esophageal mucosal changes suspicious for Barreto's esophagus. Biopsied. - Z-line irregular, 41 cm from the incisors. - Erythematous mucosa in the antrum. Biopsied. - Normal examined duodenum. Biopsied. - Normal mid esophagus. Biopsied. No obvious finding that would correlate with swallowing problems--would consider manometry if symptoms persists Recommendation: - Discharge patient to home. - Resume previous diet. - Continue present medications. - Telephone my office for pathology results in 1 week. - Repeat upper endoscopy in 3 - 5 years for surveillance. Procedure Code(s): --- Professional --- 07034, Esophagogastroduodenoscopy, flexible, transoral; with biopsy, single or multiple Diagnosis Code(s): --- Professional --- K22.8, Other specified diseases of esophagus K31.89, Other diseases of stomach and duodenum R13.10, Dysphagia, unspecified CPT copyright 2017 [employer]. All rights reserved. The codes documented in this report are preliminary and upon cardiovascular operating room nurse review may be revised to meet current compliance requirements. Arnaldo Henderson MD 02/24/2020 6:44:17 AM This report has been signed electronically. Number of Addenda: 0 Note Initiated On: 02/24/2020 6:19 AM
[2020-02-24 06:45] VITALS: BP 107/59; BP 114/70; PULSE 67; RESP 16; TEMP 36.4; O2SAT 97
--- NOTE | 2020-02-24 06:45 | OP.CCLET_ITS ---
02/24/2020 Jaswinder Rosen MD [address] [id number] Re : Upper GI endoscopy procedure for Diana Plaza Dear Dr. Rosen This procedure was performed on Monday, February 24, 2020. My impressions and recommendations are as follows: Impressions : - Esophageal mucosal changes suspicious for Barreto's esophagus. Biopsied. - Z-line irregular, 41 cm from the incisors. - Erythematous mucosa in the antrum. Biopsied. - Normal examined duodenum. Biopsied. - Normal mid esophagus. Biopsied. No obvious finding that would correlate with swallowing problems--would consider manometry if symptoms persists Recommendations : - Discharge patient to home. - Resume previous diet. - Continue present medications. - Telephone my office for pathology results in 1 week. - Repeat upper endoscopy in 3 - 5 years for surveillance. My findings are described in the full procedure note, which is enclosed. If I can be of further assistance, please feel free to contact me at Doctor phone number(s): Work: . Sincerely, Arnaldo Henderson MD 02/24/2020 6:44:17 AM This report has been signed electronically.
[2020-02-24 06:50] VITALS: BP 114/70; BP 99/64; PULSE 70; RESP 16; O2SAT 97
[2020-02-24 06:55] VITALS: BP 107/91; BP 114/70; PULSE 71; RESP 16; O2SAT 100
[2020-02-24 07:00] VITALS: BP 114/70; BP 123/84; PULSE 72; RESP 16; TEMP 36.4; O2SAT 100
[2020-02-24 07:14] VITALS: BP 114/70
== END 2020-02-24 07:41 | disposition home or self-care (01) ==
LOC: EN 05:24 → AC 05:26
PROVIDERS: Anesthesiology; PCP Family Medicine; Referring Provider Family Medicine; Visit Provider Surgery
PROC: 0DJ08ZZ Inspection of Upper Intestinal Tract, Via Natural or Artificial Opening Endoscopic (ICD-10-PCS; CPT 43235; principal; 2020-02-24 06:25)
DX: K22.8 Other specified diseases of esophagus (principal); R13.10 Dysphagia, unspecified; K31.89 Other diseases of stomach and duodenum; Z79.1 Long term (current) use of non-steroidal anti-inflammatories (NSAID); Z79.82 Long term (current) use of aspirin; Z90.49 Acquired absence of other specified parts of digestive tract; K40.90 Unilateral inguinal hernia, without obstruction or gangrene, not specified as recurrent; J98.4 Other disorders of lung; Z87.19 Personal history of other diseases of the digestive system
CPT/HCPCS: 43239; 87635; 88305; 88312; 88313; 88342; 94799; J7120; J2405; U0003

== ENCOUNTER 2020-02-27 09:54 | Day surgery (SDC) | payer MEDICARE, OTHER, SELFPAY ==
[2020-02-13 06:46] VITALS: BMI 19.7
[2020-02-27] VITALS (8 sets, daily range): BP systolic 129–141; BP diastolic 72–91; PULSE 76–95; RESP 14–18; TEMP 36.2–37.1; O2SAT 94–100; BMI 18.6
--- NOTE | 2020-02-27 10:40 | HP.PCM_ITS ---
Problem List (1) Inguinal hernia of right side without obstruction or gangrene Status: Acute History and Physical Date of Admission: 02/27/20 Intake Visit Reasons: INGUINAL HERNIA Chief Complaint: Chest Pain. Allergies No Known Allergies Allergy (Verified 02/13/20 09:00) Medications Aspirin E.C. [Ecotrin] 81 mg PO QODAY 02/16/16 [History Confirmed 02/13/20] Multivitamin [Multiple Vitamins] 1 ea PO QODAY 08/22/16 [History Confirmed 02/13/20] Clonazepam [Klonopin] 0.5 mg PO Q8H PRN PRN 12/13/18 [History Confirmed 02/13/20] triamterene 37.5 mg-hydrochlorothiazide 25 mg tablet 1 tab PO DAILY 02/19/19 [History Confirmed 02/13/20] Omeprazole 20 mg PO DAILY #30 tablet. 02/04/20 [Rx Confirmed 02/13/20] albuterol sulfate 90 mcg/actuation aerosol inhaler 2 puff INHALATION Q6H PRN 02/13/20 [History Confirmed 02/13/20] calcium carbonate-vitamin D3 600 mg calcium-200 unit capsule cap PO 02/13/20 [History] dicyclomine 10 mg capsule 10 mg PO BID 02/13/20 [History Confirmed 02/13/20] meloxicam 7.5 mg tablet 7.5 mg PO DAILY 02/13/20 [History Confirmed 02/13/20] potassium chloride 20 mEq tablet,extended release 20 meq PO DAILY 02/13/20 [History Confirmed 02/13/20] PFSH Family History (Updated 02/13/20 @ 08:59 by Toya Mcgill) Mother Arthritis Heart disease Hypertension Grandfather CVA (cerebral vascular accident) Social History (Updated 02/13/20 @ 09:[address] Arnaldo Henderson MD) Smoking Status: Never smoker second hand exposure: No alcohol intake: never substance use type: does not use what type of physical activity do you participate in: none frequency: does not exercise HPI HPI HPI: 74-year-old female. She is referred by her primary care present Dr. Jaswinder Rosen and a written copy of my surgical consult recommendations will return to him. His initial referral is because of right groin pain and inguinal hernia. She presents today with a couple concerns. She has been having swallowing problems. She states that solid food frequently seems like it gets stuck. She claims that that she has had a previous history of Barreto's esophagus. It is somewhat difficult to interpret when she had her last upper endoscopy diascopy but she thinks it was done when she was in [place]. Apparently she also lived in [place] for a period of time. It seems relatively clear that she has not had one within the past year. On April 30, 2019 she had a barium swallow. That was felt to be normal. On February 05, 2020 because of right groin pain she had a CT scan of the abdomen showing a right inguinal hernia. The patient was evaluated on February 04, 2020 because of upper chest pain. She had a exercise tolerance stress test showing ejection fraction of 85% and no signs of ischemia. She was told at that time that cardiology Dr. Jaswinder Pena suspected possible upper GI source to her pain. Patient also complains of an intermittent bulge in the right groin. It is particularly noticeable when she is standing. It can get very firm and uncomfortable. She noticed it most recently this morning but was able to gently reduce it when she was lying supine. It is of note that I assisted her 1 year ago with a laparoscopic cholecystectomy for cholecystitis. She states that that procedure went well and that she has been well since that time [facility] [address] [place] [address] Abdomen/Pelvis WITH Contrast MR#: [id number]:[id number] Name: MAUREEN BAIRD #:[id number] : [id number] From: Preston He MD PCP:Dr. Jaswinder Rosen MD Status:REG CLI Study:Abdomen/Pelvis WITH Contrast Date of Exam:02/05/20 Exam#[id number] Ordering Dr: Carmen Yoder STUDY: CT ABDOMEN AND PELVIS WITH CONTRAST REASON FOR EXAM: Female, 74 years old. RIGHT GROIN PAIN AND SWELLING X 3 MONTHS. DELAY SET OF IMAGES INCLUDED RADIATION DOSAGE (If Supplied By Facility): CTDIvol = ( 15.18 ) mGy, DLP = ( 528.69 ) mGycm TECHNIQUE: Transaxial images were obtained from the dome of the diaphragm to the symphysis pubis with oral contrast. Oral and amp; IV Readi-CAT and amp; 100mL Isovue-300 was administered. Sagittal and coronal images were reconstructed. Individualized dose optimization techniques were used for this CT. COMPARISON: Comparison is made with prior study dated 02/19/2019. FINDINGS: Stable increased linear densities at the left lung base suggestive of scarring. The visualized portions of the heart are within normal limits. Normal liver. The patient is status post cholecystectomy. Normal spleen. Normal pancreas. Normal bilateral adrenal glands. Normal right kidney. Normal left kidney. Normal visualized stomach. Normal small intestine. Normal colon. The appendix is visualized and appears normal. Normal abdominal aorta. Normal inferior vena cava. Normal retroperitoneum. Normal urinary bladder. There is absence of the uterus consistent with a prior hysterectomy. Stable small ringlike hernia in the right inguinal region measuring 1.2 x 1.2 cm. There are diffuse degenerative changes of the visualized lumbar spine. Stable 7.5 mm fat-containing density in the lower left sacrum. Stable 5 cm left TARLOV cysts sacrum. CT/Abdomen/Pelvis WITH Contrast IMPRESSION: Stable small right inguinal hernia containing fat. The patient is status post cholecystectomy. Stable linear scarring at the left lung base. Electronically Signed: Preston Ying, at 9:18 EDT , Service support , CC: YESSY Yoder; Dr. Jaswinder Rosen MD ~ [employer]ing Teacher: Signed HPI HPI HPI: MAUREEN BAIRD, is a 74 F who presents to the office today for Exam Const General: cooperative, healthy appearing, comfortable, no acute distress Nutritional Appearance: average body habitus Orientation: alert, awake HENOK Head: normal to inspection Eyes General: appearance normal, both eyes and all related structures Chest Chest palpation & inspection: normal inspection of the chest Resp Effort & Inspection: normal respiratory effort Auscultation: clear to auscultation bilaterally Cardio Rate: regular rate Rhythm: regular rhythm GI Palpation: soft, no hepatosplenomegaly Auscultation: normal bowel sounds Other: Right groin hernia detected. Difficult to appreciate whether this is an inguinal hernia or femoral hernia. Left side appears to be solid and intact Musc Cervical Spine: normal cervical lordosis Skin General: no rashes or lesions noted Neuro Cognition: normal cognition Extrem General: no calf tenderness Psych Affect: normal affect Assessment & Plan Problems 1. Esophageal dysphagia R13.10 2. Inguinal hernia of right side without obstruction or gangrene K40.90 3. History of Barreto's esophagus Z87.19 Plan 74-year-old female. She has been having increasing problems swallowing. She claims that she has a history of Barreto's. She claims that she is previously remotely had an upper endoscopy with dilatation when she was in [place]. Solid food is giving her troubles. I do not think she has had manometry. I believe however that send in her interest to have a esophagogastroduodenoscopy with possible biopsy or dilatation if indicated. She is aware of the technique, benefit, risk of alternatives. She has had an opportunity to ask and have questions answered and we will schedule. The patient clearly has a symptomatic right groin hernia. I believe that it is an inguinal hernia. I have offered her a laparoscopic repair with mesh. We have discussed the technique, benefit, risk of alternatives. She has had an opportunity to ask and have questions answered and she is interested in pursuing definitive repair. No guarantees of success have been offered. We also will schedule procedure at her discretion. I appreciate the opportunity of continuing to assist with her surgical care Copy: Dr. Jaswinder Henderson M.D., F.A.C.S. Coding Level of Care Code 27307 Diagnoses Esophageal dysphagia R13.10 ??Dysphagia type: esophageal phase Inguinal hernia of right side without obstruction or gangrene K40.90 History of Barreto's esophagus Z87.19 I have re-examined the patient. There are no clinical changes since date of exam. Procedure Criteria Procedure Type: Elective COVID Risk Discussion: The surgeon/proceduralist and patient have discussed in detail the risk of exposure to and/or potential harm posed by the COVID-19 virus with having a surgery/procedure at this time versus the risk of delaying the surgery/procedure. It is not possible to know either the risk of delaying the surgery or procedure or chance of getting an infection with perfect accuracy, but a joint decision was made between the patient and the surgeon/proceduralist to proceed at this time with the scheduled surgery/procedure as indicated on the consent form.
[2020-02-27] MEDS: Lactated Ringers 1,000 ML 15 ML IV ×3 (10:42→15:50)
--- NOTE | 2020-02-27 11:47 | DCINST_ITS ---
Discharge Diet: Light diet - advance as tolerated - if you have questions about your diet instructions, please talk to you doctor. Discharge Activity: May Not Drive - for 1 week or while taking narcotic pain medicine. May shower in (days): 1 Lifting Restrictions: 10 pounds Call your doctor if your incision/area has: Continuous Slow Oozing, Sudden Increased Bleeding, Increased Pain/ Swelling, Increased Redness, Foul Smelling Discharge Call your doctor if you observe: Fever of 101 or Higher Suture Line Care: Avoid Pulling/Pushing, Avoid Pinching/Bending Additional Dressing/Incision Instructions:: Change or remove dressing in 4 days. Leave steri-strips in place for 1 week. Allergies/Adverse Reactions: Allergies No Known Allergies Allergy (Verified 02/24/20 05:42) Medications to take at Discharge Aspirin E.C. [Ecotrin] 81 mg PO QODAY 02/16/16 Multivitamin [Multiple Vitamins] 1 ea PO QODAY 08/22/16 Clonazepam [Klonopin] 0.5 mg PO Q8H PRN PRN 12/13/18 triamterene 37.5 mg-hydrochlorothiazide 25 mg tablet 1 tab PO DINNER 02/19/19 dicyclomine 10 mg capsule 10 mg PO BID PRN 02/13/20 meloxicam 7.5 mg tablet 7.5 mg PO DAILY PRN 02/13/20 Primary Care Physician: Jaswinder Rosen MD [Primary Care Provider] - Test Results: Test results from this visit will be discussed in further detail at your follow- up appointment, if applicable. Please Follow Up With: Arnaldo Henderson MD - [phone] When: Call for appt. May be ph.call, virtual, or onsite. 10days
[2020-02-27] MEDS: Cefazolin 2 GM in 0.9% Normal Saline 100 ML IV (11:54)
--- NOTE | 2020-02-27 12:00 | TESH_PTH ---
PATIENT: MAUREEN [place]IRD [place] [facility] [id number] AGE/SX: 74/F ROOM: RE02/27/[address]: Dr. Arnaldo Henderson MD : 1945 BED: DIS: 02/27/2020 SPEC #: [id number] RECD: 02/27/20 15:23 STATUS: ADITYA RERegino #: [id number] EZEQUIEL: 02/27/20 12:[address]: Arnaldo Henderson DEPT: SURGICAL PATHOLOGY RECD BY: Emerson Guido ENTERED: 02/28/20 08:57 SP TYPE: TENDON OTHR DR: Dr. Jaswinder Rosen MD Tissues: Tendon and tendon sheath, NOS Procedures: Surgery Specimen Level III HEADER OPERATION: Laparoscopic inguinal hernia repair PRE-OP DIAGNOSIS: Inguinal hernia of right side TISSUE SUBMITTED: Right round ligament MICROSCOPIC DIAGNOSIS Round ligament, excision: Fibrovascular tissue consistent with round ligament. AM:rika 8/31/20 MICROSCOPIC DESCRIPTION Slides are reviewed. GROSS DESCRIPTION Received in fixative is one container labeled with the patient's name and designated round ligament. The specimen consists of an irregular fragment of glistening, martell tissue that measures 3 x 1 x 0.5 cm. The specimen is sectioned and totally submitted in two cassettes. / AM:rika 02/28/20 TC:5 CPT: 91482
[2020-02-27] MEDS: Bupivacaine Mpf 0.5% 30 ML VIAL (12:36)
--- NOTE | 2020-02-27 12:38 | OP.PCM_ITS ---
Problem List (1) Inguinal hernia of right side without obstruction or gangrene Status: Acute Report of Operation Date of Procedure: 02/27/20 Pre-Operative Diagnosis: Right inguinal hernia Post-Operative Diagnosis: Indirect right inguinal hernia, possible round ligament inflammation Surgery/Procedure Performed:: Laparoscopic right inguinal herniorrhaphy with segmental excision right round ligament. Right large Bard 3D max mesh. Lot number [id number]. Reference #[id number], expiry date 10/28/2024. Secure strap lot [id number], expiry date July, Description of Surgical Findings:: Timeout and informed consent was obtained. 74-year-old female was taken the operating placed on the table underwent general endotracheal intubation esthesia. Ancef 2 g were given intravenously. The abdomen sterilely prepped draped. 0.5% Marcaine was used as a local anesthetic. Throughout the procedure a total of 25 cc was used. Skin sites were pre-anesthetized. A vertical infraumbilical incision was created sharp dissection carried down through subcutaneous tissue the fascia was identified incised the peritoneum identified incised under direct visitation a 10 mm port inserted. The abdomen was insufflated with CO2 to a pressure of 10 mmHg pressure. Under direct physician 5 mm ports were placed in the right and left lower quadrant. Both groins were inspected. There is felt to be an indirect inguinal hernia on the right. The small bowel was evacuated from the pelvis I did not see any obturator defect. The peritoneum superior and lateral to the internal ring was incised and carried immediately after a ileal inguinal nerve block was performed with local anesthetic. The peritoneum was then completely inverted and dissected free. Upon withdrawing the peritoneum from the round ligament there appeared to be some fluid within the round ligament. I elected to withdraw the round ligament secured distally with hemo-lock clips transected and then I transected the more proximal portion with hot electrocautery. That segment of round ligament that had fluid it and it was then submitted for analysis. This could have been a small hydrocele type finding. The direct, indirect and femoral area was nicely visualized. A Bard large 3D max mesh was placed so was nicely cover all 3 areas. It was secured in place laterally superiorly and medially with secure tack. Good positioning was achieved. The peritoneum was then approximated to itself using secure strap and several hemo-lock clips. Complete obliteration of the mesh was achieved. The abdomen was allowed to deflate so an antiviral valve. Trochars were removed. The fascia at the umbilicus approximated with 2 tzangu-ur-cvvue sutures of 0 Vicryl. Skin edges approximated up to 4-0 Monocryl subdermal stitches. Steri- Strips Telfa and OpSite dressings applied. Sponge and instrument and needle counts were reported to the surgeon to be correct. Specimens round ligament. Drains none. Blood loss minimal. Arnaldo Henderson M.D., F.A.C.S. Type of Anesthesia:: General Anesthesiologist: Caleb Vivas
[2020-02-27] MEDS: HYDROcodone Bitartrate/Apap 5/325 Tablet PO (15:50)
== END 2020-02-27 16:50 | disposition home or self-care (01) ==
LOC: SDC 09:54 → AC 09:55
PROVIDERS: PCP Family Medicine; Referring Provider Surgery; Visit Provider Surgery
PROC: (CPT 49650; principal; 2020-02-27 11:40)
DX: K40.90 Unilateral inguinal hernia, without obstruction or gangrene, not specified as recurrent (principal); J98.4 Other disorders of lung; R13.10 Dysphagia, unspecified; Z90.49 Acquired absence of other specified parts of digestive tract; Z79.82 Long term (current) use of aspirin; Z79.1 Long term (current) use of non-steroidal anti-inflammatories (NSAID); Z90.710 Acquired absence of both cervix and uterus; Z87.19 Personal history of other diseases of the digestive system
CPT/HCPCS: 00840; 49650; J7120; J2405

== ENCOUNTER 2020-02-27 23:10 | Observation (INO) | payer MEDICARE, OTHER, SELFPAY ==
[2020-02-27 10:17] VITALS: BMI 18.6
[2020-02-27 23:12] VITALS: BP 156/88; PULSE 90; RESP 18; TEMP 36.1; O2SAT 97; BMI 18.6
--- NOTE | 2020-02-27 23:45 | CT_ITS ---
STUDY: CT ABDOMEN AND PELVIS WITH CONTRAST REASON FOR EXAM: Female, 74 years old. HERNIA SX TODAY, NOW C/O ABD FEELING HARD. RADIATION DOSAGE (If Supplied By Facility): CTDIvol = ( 11.74 ) mGy, DLP = ( 357.00 ) mGycm TECHNIQUE: Transaxial images were obtained from the dome of the diaphragm to the symphysis pubis with oral contrast. Oral and amp; IV Gastrografin and amp; 100mL Isovue-370 was administered. Sagittal and coronal images were reconstructed. Individualized dose optimization techniques were used for this CT. COMPARISON: CT abdomen/pelvis from 02/05/2020 FINDINGS: The visualized lung bases demonstrate bibasilar atelectasis.. The visualized portions of the heart are within normal limits. Normal liver. There is non-visualization of the gallbladder, which may be secondary to either contraction or a prior cholecystectomy. Normal spleen. Normal pancreas. Normal bilateral adrenal glands. Normal right kidney. Normal left kidney. There is intra-abdominal free air visualized. There is gaseous distention of the stomach. There is diffuse gaseous distention of the bowel. Oral contrast is seen within proximal jejunum small bowel loops which are mildly dilated. The appendix is visualized and appears normal. Normal abdominal aorta. Normal inferior vena cava. Normal retroperitoneum. Normal urinary bladder. Normal abdominal wall. There are diffuse degenerative changes of the visualized lumbar spine. Subcutaneous emphysema is seen within the right anterior abdominal wall. There is a small right inguinal hernia. CT/Abdomen/Pelvis WITH Contrast IMPRESSION: Intra-abdominal free air concerning for hollow viscus perforation. Diffuse gaseous distended stomach and bowel. No defined transition point visualized to indicate obstruction. Surgical consultation recommended. Status post cholecystectomy. Electronically Signed: Dave Donnelly, at 2:08 EDT Tel , Service support ,
--- NOTE | 2020-02-27 23:48 | ED.DCSUM_ITS ---
History of Present Illness Chief Complaint: Abd Pain Informant: Patient, Significant Other Onset: Today Narrative: Patient postop laparoscopic right inguinal hernia repair today by Dr. Henderson discharge at 4:30 PM. States received hydrocodone pain dose before discharge. However states an hour ago increasing abdominal distention with nausea. States has not had a bowel movement. No urinary symptoms. No fevers. She states did not have these symptoms when she had a laparoscopic cholecystectomy a year ago. She called and spoke to surgeon special education superintendent sent to the ED for evaluation. Prior similar symptoms: No Past Medical History - Allergies and Home Meds Allergies/Adverse Reactions: Allergies No Known Allergies Allergy (Verified 02/27/20 23:14) Primary Care Physician: Jaswinder Rosen MD [Primary Care Provider] - Past Medical History: - - Hypertension, GERD, Barreto's esophagus Surgical History: cholecystectomy Smoking Status: Never smoker - Family History Maternal Family History: Family History (Last Updated 02/13/20 @ 08:59 by Toya Mcgill) Mother Arthritis Heart disease Hypertension Grandfather CVA (cerebral vascular accident) Family History: Reports: No pertinent history Review of Systems General: Denies: Chills, Fever, Sweats Eyes: Denies: Visual changes - bilaterally, Diplopia ENT: Denies: Rhinorrhea, Sore throat Cardiovascular: Denies: Chest pain, Palpitations Respiratory: Denies: Dyspnea, Cough, Dyspnea on exertion Gastrointestinal: Reports: Abdominal pain. Denies: Nausea, Vomiting, Diarrhea, Melena, Hematochezia Genitourinary: Denies: Dysuria, Hematuria, Frequency Musculoskeletal: Denies: Back pain, Extremity Pain Skin: Denies: Rash, Wounds Neurological: Denies: Headache, Weakness, Numbness Physical Exam Vital Signs/Narrative: Vital Signs Temp Pulse Resp BP Pulse Ox 02/27/20 23:12 97 F L 90 18 156/88 H 97 Inital Vital Signs reviewed: Yes General: Well nourished, Well developed, No Acute Distress Head: Normocephalic, Atraumatic Eyes: Perrl, EOMI ENT: Moist mucous membranes, No rhinorrhea Neck: Supple, Nontender Cardiovascular: Regular rate, Regular rhythm, No murmurs Respiratory: No distress, CTA bilaterally, Chest nontender Abdomen: Soft, Nontender, Hypoactive bowel sounds, - - Dressings over laparoscopic incisions lower abdomen clean, dry, intact. There is distention of the abdomen however no peritoneal findings. Back: Nontender, Normal Inspection Extremities: Nontender, No edema Skin: Normal color, No rash Neurological: Alert, Oriented x3, Cranial nerves II-XII grossly intact, Normal Strength, Normal Sensation Psychological: Normal affect, Normal Mood Diagnostic/Tx/Re-eval Abnormal Lab Results 02/28/20 02/28/20 02/28/20 00:04 00:04 00:05 WBC 8.0 RBC 4.64 Hgb 14.0 Hct 42.5 MCV 91.6 MCH 30.2 MCHC 32.9 RDW Std Deviation 41.8 RDW Coeff of Jose Juan 12.6 Plt Count 196 MPV 10.4 Immature Gran % (Auto) 0.400 Neut % (Auto) 87.5 H Lymph % (Auto) 5.8 L Edmunds % (Auto) 6.0 Eos % (Auto) 0.0 Baso % (Auto) 0.3 Absolute Neuts (auto) 7.0 Absolute Lymphs (auto) 0.46 L Nucleated RBC % 0 Differential Comment SCANNED Sodium 137 Potassium 4.1 Chloride 101 Carbon Dioxide 29.0 Anion Gap 7 BUN 11 Creatinine 0.74 Estim Creat Clear Calc 41.26 Est GFR (MDRD) Af Amer 98 Est GFR (MDRD) Non-Af 81 BUN/Creatinine Ratio 14.8 Glucose 125 H Calcium 9.3 Total Bilirubin 0.50 AST 29 ALT 29 Alkaline Phosphatase 92 Total Protein 6.8 Albumin 3.9 Globulin 2.9 Albumin/Globulin Ratio 1.3 Lipase 77 Urine Color Urine Clarity Urine pH Ur Specific Luke Urine Protein Urine Glucose (UA) Urine Ketones Urine Occult Blood Urine Nitrite Urine Bilirubin Urine Urobilinogen Ur Leukocyte Esterase Urine RBC Urine WBC Ur Squamous Epith Cells Urine Bacteria Urine Mucus 02/28/20 01:18 WBC RBC Hgb Hct MCV MCH MCHC RDW Std Deviation RDW Coeff of Jose Juan Plt Count MPV Immature Gran % (Auto) Neut % (Auto) Lymph % (Auto) Edmunds % (Auto) Eos % (Auto) Baso % (Auto) Absolute Neuts (auto) Absolute Lymphs (auto) Nucleated RBC % Differential Comment Sodium Potassium Chloride Carbon Dioxide Anion Gap BUN Creatinine Estim Creat Clear Calc Est GFR (MDRD) Af Amer Est GFR (MDRD) Non-Af BUN/Creatinine Ratio Glucose Calcium Total Bilirubin AST ALT Alkaline Phosphatase Total Protein Albumin Globulin Albumin/Globulin Ratio Lipase Urine Color Yellow Urine Clarity Clear Urine pH 7.0 Ur Specific Luke 1.010 Urine Protein Negative Urine Glucose (UA) Normal Urine Ketones Negative Urine Occult Blood 10 H Urine Nitrite Negative Urine Bilirubin Negative Urine Urobilinogen Normal Ur Leukocyte Esterase 100 H Urine RBC 0-5 SEEN Urine WBC 10-25 SEEN Ur Squamous Epith Cells 0-5 SEEN Urine Bacteria RARE Urine Mucus 0 SEEN - Medical Decision Making Patient vital signs stable. With reported increasing distention within the last hour and was not persistent with surgery discussed with patient significant other will obtain contrast CT for further evaluation. I did speak with on-call surgeon Dr. Diaz who did receive a call and agrees with work-up at this time. 0150: Laboratory studies were normal. Patient returned from CT imaging, reviewed there is noted significant distention of her stomach and small bowels. There is noted free air in the right upper quadrant however she is postop laparoscopic surgery. We spoke with surgeon Dr. Diaz, who reviewed the films at home. Discussed concerns for postop ileus versus early small bowel obstruction. Agrees with NG tube. Discussed urine noted leukocytes WBCs, she is asymptomatic, will send for culture and hold on antibiotics at this time. She states she did give a full urine sample and felt like she emptied earlier. Surgery will see the patient in the ED in admit for further management. 0215: d/w radiology. Reported free air, however i discussed patient post op laparoscopic hernia repair. With distention of gastric and bowels, he agrees likely ileus. Discussed no transition point for sbo at this time. Dr. Diaz present in ED evaluated patient and will admit to his service. ED Disposition - Plan for ED Patient: Disposition: Acute Care [facility] Diagnosis: Postoperative ileus, Status post inguinal hernia repair Referrals: Jaswinder Rosen MD [Primary Care Provider] -
[2020-02-28] MEDS: Ondansetron 4 MG/2 ML Vial IV (00:04)
[2020-02-28] MEDS: 0.9% Normal Saline 1,000 ML 125 ML IV (00:04)
[2020-02-28 00:11] LABS: Absolute Lymphocyte Count 0.46 X10^3/uL (0.83-4.51); Basophil# 0.02 X10^3/uL; Basophil% 0.3 % (0-1); Hematocrit 42.5 % (37-47); Lymphocyte # 0.46 X10^3/ul (4.0); Lymphocyte % 5.8 % (19-41); Mean Corp Hgb Conc 32.9 g/dL (32-36); Mean Corpuscular Hgb 30.2 pg (27.0-32.0); Mean Corpuscular Volume 91.6 fL (81-99); Mean Platelet Vol. 10.4 fl (6.2-12.0); Monocyte# 0.48 X10^3/uL; NRBC Flagged by Analyzer 0 % (0-5); Neutrophil % 87.5 % (47-70); POSITIVE DIFFERENTIAL YES; Platelet Count 196 K/mm3 (150-450); RBC Distribution Width CV 12.6 % (11.6-14.6); RBC Distribution Width SD 41.8 fl (35.1-43.9); Red Blood Count 4.64 M/mm3 (4.2-5.4)
[2020-02-28 00:15] LABS: Differential Indicated SCAN CRITERIA MET
[2020-02-28 00:22] LABS: Lipase 77 U/L (73-393)
[2020-02-28 00:41] LABS: Differential Comment SCANNED
[2020-02-28 01:04] LABS: ALB/GLOB Ratio 1.3 RATIO (0.9-2.4); AST(SGOT) 29 U/L (15-37); Alanine Aminotransfer ALT/SGPT 29 U/L (13-56); Albumin, Serum 3.9 g/dL (3.2-5.0); Alkaline Phosphatase 92 U/L (45-117); Anion Gap 7 (5-15); BUN 11 mg/dL (7-18); BUN/Creat Ratio 14.8 RATIO (10-20); Calcium,Total 9.3 mg/dL (8.5-10.1); Chloride 101 mmol/L (98-107); Creatinine, Serum 0.74 mg/dL (0.55-1.02); EST Glomerular Filtration Rate 81 mL/min (>60); Est Glom Filt Rate - Afr Amer 98 mL/min (>60); Estimated Creatinine Clearance 41.26 ml/min; Globulin 2.9 g/dL (2.2-4.2); Glucose 125 mg/dL (74-106); Potassium 4.1 mmol/L (3.5-5.1); Protein, Total 6.8 g/dL (6.4-8.2); Sodium Level 137 mmol/L (136-145)
[2020-02-28 01:24] LABS: Mucous, Urine 0 SEEN /hpf (<or=2+)
[2020-02-28 01:25] LABS: Color, Urine Yellow (Yellow); Glucose, Dipstick Normal (Normal); Ketone-Dipstick Negative (Negative); Leukocyte Esterase-Dipstick 100 /ul (Negative); Nitrite-Dipstick Negative (Negative); Occult Blood-Urine 10 /ul (Negative); Protein-Dipstick Negative (Negative); Urine Bilirubin Dipstick Negative (Negative); Urine Clarity Clear (Clear); Urine Urobilinogen Normal (Normal)
[2020-02-28 01:32] LABS: White Blood Cells 10-25 SEEN /hpf (0-5)
[2020-02-28 01:33] LABS: Bacteria RARE /hpf (None Seen); Red Blood Cells-Urine 0-5 SEEN /hpf (0-5)
[2020-02-28 01:34] LABS: Squamous Epithelial Cells - UA 0-5 SEEN /hpf (5-10)
[2020-02-28] MEDS: Lidocaine 4% 5 ML Ampul 2 ML INHALATION (02:04)
--- NOTE | 2020-02-28 02:18 | HP.PCM_ITS ---
History of Present Illness Date of Admission: 02/28/20 The patient is a 74 year old F who presents with abdominal distention and pain. The patient reports that she had laparoscopic inguinal hernia repair yesterday. Patient reports that she went home in the afternoon and since going home she has become more distended and more painful. No nausea or vomiting but she is very tender and distended. She denies any fevers or chills. She states she has urinated twice since surgery. She does not think she is passing any flatus. Past Medical History Past Medical History (Chronic Problems): Chronic Problems (Last Updated 02/13/20 @ 09:07 by Toya Mcgill) Hx of cholecystectomy (Chronic) 02/21/19 Hx of colonoscopy (Chronic) Hx of bladder repair surgery (Chronic) History of partial hysterectomy (Chronic) History of irritable bowel syndrome (Chronic) Hypertension (Chronic) Anxiety (Chronic) Medical History: Medical History (Last Updated 02/13/20 @ 09:07 by Toya Mcgill) History of Barreto's esophagus (Acute) Z87.19 Inguinal hernia of right side without obstruction or gangrene (Acute) K40.90 Trouble swallowing (Acute) R13.10 Biliary dyskinesia (Inactive) K82.8 Acute cholecystitis (Inactive) K81.0 Gastroenteritis (Inactive) K52.9 GERD (gastroesophageal reflux disease) (Inactive) K21.9 History of irritable bowel syndrome (Chronic) Z87.19 Sciatic leg pain (Inactive) M54.30 Nausea (Inactive) R11.0 Hypokalemia (Inactive) E87.6 Acute chest pain (Inactive) R07.9 Chest pain (Inactive) R07.9 Hypertension (Chronic) I10 Near syncope (Inactive) Altered mental status (Inactive) R41.82 Anxiety (Chronic) F41.9 Barreto esophagus K22.70 Allergies No Known Allergies Allergy (Verified 02/27/20 23:14) Home Medications: Ambulatory Orders Medication Instructions Recorded Aspirin E.C. [Ecotrin] 81 mg PO QODAY 02/16/16 Multivitamin [Multiple Vitamins] 1 ea PO QODAY 08/22/16 Clonazepam [Klonopin] 0.5 mg PO Q8H PRN PRN 12/13/18 triamterene 37.5 1 tab PO DINNER 02/19/19 mg-hydrochlorothiazide 25 mg tablet Hydrocodone Bitart/Apap 5-325 1 tab PO Q6H PRN PRN 2 Days #6 tab 02/27/20 [[place] 5MG-325MG] Surgical History: Surgical History (Last Updated 02/13/20 @ 09:05 by Toya Mcgill) Hx of cholecystectomy (Chronic) Z90.49 02/21/19 Hx of colonoscopy (Chronic) Z98.890 Hx of bladder repair surgery (Chronic) Z98.890 History of partial hysterectomy (Chronic) Z90.711 History of colonoscopy Onset Date: ~2018 Z98.890 Surgical History: cholecystectomy Smoking Status: Never smoker - *Family History Maternal Family History: Family History (Last Updated 02/13/20 @ 08:59 by Toya Mcgill) Mother Arthritis Heart disease Hypertension Grandfather CVA (cerebral vascular accident) History Items: No pertinent history Review of Systems Constitutional: Denies: Anorexia, Fever HEENT: Denies: Difficulty Swallowing Cardiovascular: Denies: Chest Pain Respiratory: Denies: Cough, Shortness of Breath Gastrointestinal: Reports: Abdominal Pain. Denies: Dyspepsia, Hematemesis, Hematochezia, Nausea, Melena, Vomiting Genitourinary: Denies: Dysuria, Frequency, Hematuria, Retention Skin: Denies: Jaundice Neurological: Denies: Balance problems Psychiatric: Denies: Anxiety Hematologic/ Lymphatic: Denies: Anemia VTE Information - Inpt Only VTE Present on Admission: No VTE Mechan Device Prophylaxis: SCD's Patient Problems: Active and Suspected Problems (Last Updated 02/13/20 @ 09:05 by Toya Mcgill) Postoperative ileus (Acute) Status post inguinal hernia repair (Acute) - Physical Exam Vitals/I&O's: Vital Signs Temp Pulse Resp BP Pulse Ox 97 F L 90 18 156/88 H 97 02/27/20 23:12 02/27/20 23:12 02/27/20 23:12 02/27/20 23:12 02/27/20 23:12 Oxygen Delivery Method Room Air Weight: 115 lb Body Mass Index (BMI) 18.6 Finger Stick Blood Glucose 88 General: Alert, Oriented x3 Neck: No JVD Lungs: Normal air movement Cardiovascular: Regular rate, Regular Rhythm Abdomen: Distended, Tender Extremities: No clubbing Musculoskeletal: No Muscle Wasting Neurological: Cranial nerves II-XII grossly intact Psych/Mental Status: Normal Affect Laboratory Results 02/28/20 00:04: WBC 8.0, RBC 4.64, Hgb 14.0, Hct 42.5, MCV 91.6, MCH 30.2, MCHC 32.9, RDW Std Deviation 41.8, RDW Coeff of [place] 12.6, Plt Count 196, MPV 10.4, Immature Gran % (Auto) 0.400, Neut % (Auto) 87.5 H, Lymph % (Auto) 5.8 L, [place] % (Auto) 6.0, Eos % (Auto) 0.0, Baso % (Auto) 0.3, Absolute Neuts (auto) 7.0, Absolute Lymphs (auto) 0.46 L, Nucleated RBC % 0, Differential Comment SCANNED 02/28/20 00:04: Lipase 77 02/28/20 00:05: Sodium 137, Potassium 4.1, Chloride 101, Carbon Dioxide 29.0, Anion Gap 7, BUN 11, Creatinine 0.74, Estim Creat Clear Calc 41.26, Est GFR (MDRD) Af Amer 98, Est GFR (MDRD) Non-Af 81, BUN/Creatinine Ratio 14.8, Glucose 125 H, Calcium 9.3, Total Bilirubin 0.50, AST 29, ALT 29, Alkaline Phosphatase 92, Total Protein 6.8, Albumin 3.9, Globulin 2.9, Albumin/Globulin Ratio 1.3 02/28/20 01:18: Urine Color Yellow, Urine Clarity Clear, Urine pH 7.0, Ur Specific [place] 1.010, Urine Protein Negative, Urine Glucose (UA) Normal, Urine Ketones Negative, Urine Occult Blood 10 H, Urine Nitrite Negative, Urine Bilirubin Negative, Urine Urobilinogen Normal, Ur Leukocyte Esterase 100 H, Urine RBC 0-5 SEEN, Urine WBC 10-25 SEEN, Ur Squamous Epith Cells 0-5 SEEN, Urine Bacteria RARE, Urine Mucus 0 SEEN Clinical Impression(s) from Imaging Studies Abdomen/Pelvis CT 02/27/20 23:45 IMPRESSION: Intra-abdominal free air concerning for hollow viscus perforation. Diffuse gaseous distended stomach and bowel. No defined transition point visualized to indicate obstruction. Surgical consultation recommended. Status post cholecystectomy. Electronically Signed: Dave Donnelly, at 2:08 EDT Tel , Service support , Current Medications Sodium Chloride () 1,000 mls @ 125 mls/hr IV .Q8H [facility] Last Admin: 02/28/20 00:04 Dose: 125 mls/hr Documented by: Assessment/Plan All Active Problems (Last Updated 02/13/20 @ 09:07 by Toya Mcgill) Postoperative ileus (Acute) Status post inguinal hernia repair (Acute) History of Barreto's esophagus (Acute) Inguinal hernia of right side without obstruction or gangrene (Acute) Trouble swallowing (Acute) Chest pain (Acute) 74-year-old female with postoperative ileus due to surgery 1. The patient has a very distended abdomen. She is tender with no guarding or rebound. The patient's CT scan shows a very distended stomach and small bowel and colon. There was some free air noted but she had abdominal surgery less than 24 hours ago. There is no fluid in the abdomen and her white count is normal. I believe she has a postoperative ileus. She had a UA which showed a very small amount of leukocyte esterase and very rare bacteria. Urine is being cultured. Patient's having NG placed currently. She is urinating well but she is not passing gas that she knows of. I will have her admitted to the floor after NG placement and await bowel function and recheck labs in the morning. I will recheck a KUB in the morning as well. Cruz Diaz MD Pager: [facility] [address] [place] [address], [address] [place] [address] Office:
--- NOTE | 2020-02-28 02:32 | RAD_ITS ---
STUDY: X-RAY - ABDOMEN/PELVIS REASON FOR EXAM: Female, 74 years old. NG TUBE PLACEMENT TECHNIQUE: AP COMPARISON: CT abdomen from 02/28/2020. FINDINGS: Gastric tube coils into the stomach. There is diffuse gaseous distention of bowel loops in the upper abdomen. Normal soft tissue structures. Prior noted free air is not well demonstrated. RAD/Abdomen Single View (Portable) IMPRESSION: Gastric tube coils in the stomach. Electronically Signed: Dave Donnelly, at 3:05 EDT Tel , Service support ,
--- NOTE | 2020-02-28 02:38 | RAD_ITS ---
STUDY: X-RAY - ABDOMEN/PELVIS REASON FOR EXAM: Female, 74 years old. NG TUBE PLACEMENT. RE EVALUATION AFTER PULLED TUBE BACK TECHNIQUE: AP KUB COMPARISON: 02/28/2020 from 0233 FINDINGS: Gastric tube tracks into the stomach. There is persistent gaseous distention of bowel loops. Prior detected free intra-abdominal air is not well demonstrated. RAD/Abdomen Single View (Portable) IMPRESSION: Interval retraction of gastric tube with tip remaining in the stomach. Persistent gaseous distended loops of bowel concerning for ileus. Electronically Signed: Dave Donnelly, at 7:48 EDT Tel , Service support ,
[2020-02-28 03:04] VITALS: BP 141/85; PULSE 81; RESP 16; TEMP 36.3; O2SAT 97
[2020-02-28 03:05] VITALS: RESP 16
[2020-02-28 03:13] VITALS: BMI 19.8
[2020-02-28 03:22] VITALS: BP 138/75; PULSE 73; RESP 16; TEMP 36.4; O2SAT 100
[2020-02-28 03:40] VITALS: BMI 19.8
[2020-02-28] MEDS: 0.9% Normal Saline 1,000 ML 100 ML IV (03:48)
[2020-02-28] MEDS: Morphine 2 MG/ML Syringe IV (03:48)
--- NOTE | 2020-02-28 06:13 | PN.SURG_ITS ---
Patient Problems: Active and Suspected Problems (Last Updated 02/13/20 @ 09:05 by Toya Mcgill) Postoperative ileus (Acute) Status post inguinal hernia repair (Acute) Subjective: Patient graciously admitted by Dr. Diaz last evening with postoperative ileus. She states she is feeling slightly less tense. No flatus. - Physical Exam Vitals/I&O's: Vital Signs Temp Pulse Resp BP Pulse Ox 97.6 F L 73 16 138/75 H 100 02/28/20 03:22 02/28/20 03:22 02/28/20 03:22 02/28/20 03:22 02/28/20 03:22 Oxygen Delivery Method Room Air Weight: 122 lb 9.232 oz Body Mass Index (BMI) 19.8 Finger Stick Blood Glucose 88 Intake and Output for Last 24 Hours 02/26/20 02/27/20 02/28/20 23:59 23:59 23:59 Intake Total 576.67 / 576.67 Output Total 300 / 300 Balance 276.67 / 276.67 General: Alert, Oriented x3, Cooperative, No apparent distress Abdomen: Soft, Bowel Sounds Not Present, Distended Laboratory Results 02/28/20 00:04: WBC 8.0, RBC 4.64, Hgb 14.0, Hct 42.5, MCV 91.6, MCH 30.2, MCHC 32.9, RDW Std Deviation 41.8, RDW Coeff of Jose Juan 12.6, Plt Count 196, MPV 10.4, Immature Gran % (Auto) 0.400, Neut % (Auto) 87.5 H, Lymph % (Auto) 5.8 L, [place] % (Auto) 6.0, Eos % (Auto) 0.0, Baso % (Auto) 0.3, Absolute Neuts (auto) 7.0, Absolute Lymphs (auto) 0.46 L, Nucleated RBC % 0, Differential Comment SCANNED 02/28/20 00:04: Lipase 77 02/28/20 00:05: Sodium 137, Potassium 4.1, Chloride 101, Carbon Dioxide 29.0, Anion Gap 7, BUN 11, Creatinine 0.74, Estim Creat Clear Calc 41.26, Est GFR (MDRD) Af Amer 98, Est GFR (MDRD) Non-Af 81, BUN/Creatinine Ratio 14.8, Glucose 125 H, Calcium 9.3, Total Bilirubin 0.50, AST 29, ALT 29, Alkaline Phosphatase 92, Total Protein 6.8, Albumin 3.9, Globulin 2.9, Albumin/Globulin Ratio 1.3 02/28/20 01:18: Urine Color Yellow, Urine Clarity Clear, Urine pH 7.0, Ur Specific [place] 1.010, Urine Protein Negative, Urine Glucose (UA) Normal, Urine Ketones Negative, Urine Occult Blood 10 H, Urine Nitrite Negative, Urine Bilirubin Negative, Urine Urobilinogen Normal, Ur Leukocyte Esterase 100 H, Urine RBC 0-5 SEEN, Urine WBC 10-25 SEEN, Ur Squamous Epith Cells 0-5 SEEN, Urine Bacteria RARE, Urine Mucus 0 SEEN Current Medications Sodium Chloride () 1,000 mls @ 100 mls/hr IV .Q10H [facility] Last Admin: 02/28/20 03:48 Dose: 100 mls/hr Documented by: Pantoprazole Sodium 40 mg/ (Sodium Chloride) 110 mls @ 330 mls/hr IV Q24 [facility] Last Infusion: 02/28/20 03:23 Dose: Infused Documented by: Morphine Sulfate () 2 - 4 mg IV Q2H PRN PRN PRN Reason: Pain Score 4-10/10 Last Admin: 02/28/20 03:48 Dose: 2 mg Documented by: Ondansetron HCl (Zofran) 4 mg IV Q6H PRN PRN PRN Reason: NAUSEA/VOMITING Sodium Chloride () 10 - 40 ml IV UD PRN PRN Reason: SALINE FLUSH Medical Necessity - Tobacco Use Smoking Status: Never smoker Assessment/Plan All Active Problems (Last Updated 02/13/20 @ 09:07 by Toya Mcgill) Postoperative ileus (Acute) Status post inguinal hernia repair (Acute) History of Barreto's esophagus (Acute) Inguinal hernia of right side without obstruction or gangrene (Acute) Trouble swallowing (Acute) Chest pain (Acute) 74-year-old female with postoperative ileus. NG tube is in place. We will strongly encourage patient mobilization. Patient appears to be comfortable I will stop the narcotics. Hopefully she can mobilize and resolve the ileus. Arnaldo Henderson M.D., F.A.C.S.
--- NOTE | 2020-02-28 06:40 | NURSING ---
Ambulated in hallway at this time.
[2020-02-28] MEDS: Bisacodyl 10 MG Suppository RECTAL (06:50)
--- NOTE | 2020-02-28 06:53 | MDS.RN ---
pt walked a full lap in the [place]urb[place] with charge auditor. pt tolerated well. + flatus
[2020-02-28 07:08] LABS: Absolute Lymphocyte Count 1.06 X10^3/uL (0.83-4.51); Absolute Neutrophil Count 8.2 X10^3/uL (2.0-7.7); Basophil# 0.02 X10^3/uL; Basophil% 0.2 % (0-1); Eosinophil# 0.04 X10^3/uL; Eosinophils% 0.4 % (0-5); Hematocrit 41.5 % (37-47); Hemoglobin 13.5 g/dL (12.0-15.0); Lymphocyte # 1.06 X10^3/ul (4.0); Lymphocyte % 10.4 % (19-41); Mean Corp Hgb Conc 32.5 g/dL (32-36); Mean Corpuscular Hgb 29.7 pg (27.0-32.0); Mean Corpuscular Volume 91.2 fL (81-99); Mean Platelet Vol. 10.1 fl (6.2-12.0); Monocyte# 0.87 X10^3/uL; Monocyte% 8.5 % (0-10); NRBC Flagged by Analyzer 0 % (0-5); Neutrophil # 8.16 X10^3/uL (2.7-7.7); Platelet Count 207 K/mm3 (150-450); RBC Distribution Width CV 12.6 % (11.6-14.6); RBC Distribution Width SD 41.5 fl (35.1-43.9); Red Blood Count 4.55 M/mm3 (4.2-5.4); White Blood Count 10.2 K/mm3 (4.4-11.0)
[2020-02-28 07:32] LABS: Anion Gap 3 (5-15); BUN 9 mg/dL (7-18); Calcium,Total 9.4 mg/dL (8.5-10.1); Chloride 103 mmol/L (98-107); Creatinine, Serum 0.75 mg/dL (0.55-1.02); EST Glomerular Filtration Rate 81 mL/min (>60); Est Glom Filt Rate - Afr Amer 98 mL/min (>60); Estimated Creatinine Clearance 43.98 ml/min; Glucose 92 mg/dL (74-106); Potassium 3.6 mmol/L (3.5-5.1); Sodium Level 139 mmol/L (136-145)
--- NOTE | 2020-02-28 07:58 | CPS ---
Checked for IS and patient already had one and could demonstrate how to use.
[2020-02-28] MEDS: Acetaminophen 325 MG Tablet 650 MG PO ×2 (09:11→16:17)
[2020-02-28 09:16] VITALS: BP 142/72; PULSE 82; RESP 16; TEMP 36.6; O2SAT 100
--- NOTE | 2020-02-28 09:17 | NURSING ---
NGT removed at this time per nursing communication. Advised that patient continues to walk in halls. Verbalizes understanding.
--- NOTE | 2020-02-28 12:42 | DCINST_ITS ---
Discharge Diet: Light diet - advance as tolerated Additional Instructions: Resume previous postoperative instructions that were provided for you on the date of the operation. Allergies/Adverse Reactions: Allergies No Known Allergies Allergy (Verified 02/27/20 23:14) Medications to take at Discharge Aspirin E.C. [Ecotrin] 81 mg PO QODAY 02/16/16 Multivitamin [Multiple Vitamins] 1 ea PO QODAY 08/22/16 Clonazepam [Klonopin] 0.5 mg PO Q8H PRN PRN 12/13/18 triamterene 37.5 mg-hydrochlorothiazide 25 mg tablet 1 tab PO DINNER 02/19/19 Hydrocodone Bitart/Apap 5-325 [[place] 5MG-325MG] 1 tab PO Q6H PRN PRN 2 Days #6 tab 02/27/20 Primary Care Physician: Jaswinder Rosen MD [Primary Care Provider] - Test Results: Test results from this visit will be discussed in further detail at your follow- up appointment, if applicable. When: As outlined previously
[2020-02-28 16:11] VITALS: BP 125/70; PULSE 75; RESP 16; TEMP 36.6; O2SAT 99
== END 2020-02-28 17:20 | disposition home or self-care (01) ==
LOC: ED 02-28 02:15 → MS3 02-28 02:41
PROVIDERS: Admitting Provider Surgery; Emergency Provider Emergency Medicine; PCP Family Medicine; Visit Provider Surgery
DX: K56.7 Ileus, unspecified (principal); K91.89 Other postprocedural complications and disorders of digestive system; I10 Essential (primary) hypertension; F41.9 Anxiety disorder, unspecified; K58.9 Irritable bowel syndrome, unspecified; K21.9 Gastro-esophageal reflux disease without esophagitis; Z79.899 Other long term (current) drug therapy; Z79.82 Long term (current) use of aspirin
CPT/HCPCS: 36415; 74018; 74177; 80048; 80053; 81001; 83690; 85025; 87086; 88304; 94640; 96361; 96365; 96375; 99218; 99285; J7030; J7120; Q9967; C1781; G0378; J2405

== ENCOUNTER → 2020-04-24 08:33 | Outpatient (CLI) | payer MEDICARE, OTHER, SELFPAY ==
[2020-04-24 10:23] LABS: Anion Gap 5 (5-15); BUN 16 mg/dL (7-18); BUN/Creat Ratio 21.9 RATIO (10-20); Calcium,Total 9.8 mg/dL (8.5-10.1); Chloride 104 mmol/L (98-107); Cholesterol 218 mg/dL (200); Creatinine, Serum 0.73 mg/dL (0.55-1.02); EST Glomerular Filtration Rate 83 mL/min (>60); Est Glom Filt Rate - Afr Amer 100 mL/min (>60); Glucose 90 mg/dL (74-106); High Density Lipoprotein 112 mg/dL; Potassium 3.6 mmol/L (3.5-5.1); Sodium Level 141 mmol/L (136-145); Thyroid Stim Hormone (TSH) 0.09 uIU/mL (0.358-3.74); Triglycerides 57 mg/dL; Very Low Density Lipoprotein 11 mg/dL (5-40)
[2020-04-27 14:51] LABS: Free T3 3.1 pg/mL (2.18-3.98); T4 Free Direct 1.05 ng/dL (0.76-1.46)
== END ==
PROVIDERS: PCP Family Medicine; Referring Provider Family Medicine; Visit Provider Family Medicine
DX: E05.90 Thyrotoxicosis, unspecified without thyrotoxic crisis or storm (principal); I10 Essential (primary) hypertension
CPT/HCPCS: 36415; 80048; 80061; 84439; 84443; 84481

== ENCOUNTER → 2020-09-22 13:54 | Outpatient (CLI) | payer MEDICARE, OTHER, SELFPAY ==
[2020-08-17 08:28] VITALS: BMI 18.9
[2020-09-22 15:40] LABS: Free T3 2.6 pg/mL (2.18-3.98); T4 Free Direct 0.73 ng/dL (0.76-1.46); Thyroid Stim Hormone (TSH) 1.91 uIU/mL (0.358-3.74)
== END ==
PROVIDERS: PCP Family Medicine; Referring Provider Internal Medicine Endocrinology, Diabetes & Metabolism; Visit Provider Internal Medicine Endocrinology, Diabetes & Metabolism
DX: R13.10 Dysphagia, unspecified (principal); E05.20 Thyrotoxicosis with toxic multinodular goiter without thyrotoxic crisis or storm
CPT/HCPCS: 36415; 84439; 84443; 84481

== ENCOUNTER → 2020-10-21 11:50 | Outpatient (CLI) | payer MEDICARE, OTHER, SELFPAY ==
[2020-08-17 08:28] VITALS: BMI 18.9
[2020-10-21 15:35] LABS: Anion Gap 3 (5-15); BUN 21 mg/dL (7-18); BUN/Creat Ratio 22.7 RATIO (10-20); Calcium,Total 9.1 mg/dL (8.5-10.1); Chloride 101 mmol/L (98-107); Cholesterol 203 mg/dL (200); Creatinine, Serum 0.92 mg/dL (0.55-1.02); EST Glomerular Filtration Rate 63 mL/min (>60); Est Glom Filt Rate - Afr Amer 76 mL/min (>60); Glucose 90 mg/dL (74-106); High Density Lipoprotein 117 mg/dL; Potassium 3.2 mmol/L (3.5-5.1); Sodium Level 137 mmol/L (136-145); Triglycerides 46 mg/dL; Very Low Density Lipoprotein 9 mg/dL (5-40)
== END ==
PROVIDERS: PCP Family Medicine; Referring Provider Family Medicine; Visit Provider Family Medicine
DX: I10 Essential (primary) hypertension (principal)
CPT/HCPCS: 36415; 80048; 80061

== ENCOUNTER → 2020-11-05 13:48 | Outpatient (CLI) | payer MEDICARE, OTHER, SELFPAY ==
[2020-08-17 08:28] VITALS: BMI 18.9
[2020-11-05 15:50] LABS: Free T3 2.8 pg/mL (2.18-3.98); T4 Free Direct 0.86 ng/dL (0.76-1.46); Thyroid Stim Hormone (TSH) 2.39 uIU/mL (0.358-3.74)
== END ==
PROVIDERS: PCP Family Medicine; Referring Provider Internal Medicine Endocrinology, Diabetes & Metabolism; Visit Provider Internal Medicine Endocrinology, Diabetes & Metabolism
DX: E05.20 Thyrotoxicosis with toxic multinodular goiter without thyrotoxic crisis or storm (principal)
CPT/HCPCS: 36415; 84439; 84443; 84481

== ENCOUNTER → 2020-11-18 14:01 | Outpatient (CLI) | payer MEDICARE, OTHER, SELFPAY ==
[2020-08-17 08:28] VITALS: BMI 18.9
[2020-11-18 18:36] LABS: Anion Gap 7 (5-15); BUN 17 mg/dL (7-18); BUN/Creat Ratio 20.9 RATIO (10-20); Calcium,Total 9.3 mg/dL (8.5-10.1); Chloride 102 mmol/L (98-107); Creatinine, Serum 0.81 mg/dL (0.55-1.02); EST Glomerular Filtration Rate 73 mL/min (>60); Est Glom Filt Rate - Afr Amer 88 mL/min (>60); Glucose 108 mg/dL (74-106); Potassium 3.4 mmol/L (3.5-5.1); Sodium Level 139 mmol/L (136-145)
== END ==
PROVIDERS: PCP Family Medicine; Referring Provider Family Medicine; Visit Provider Family Medicine
DX: R42 Dizziness and giddiness (principal)
CPT/HCPCS: 36415; 80048

== ENCOUNTER → 2021-01-11 11:04 | Outpatient (CLI) | payer MEDICARE, OTHER, SELFPAY ==
[2020-08-17 08:28] VITALS: BMI 18.9
[2021-01-11 13:21] LABS: Anion Gap 5 (5-15); BUN 20 mg/dL (7-18); BUN/Creat Ratio 25.8 RATIO (10-20); Calcium,Total 9.4 mg/dL (8.5-10.1); Chloride 102 mmol/L (98-107); Creatinine, Serum 0.78 mg/dL (0.55-1.02); EST Glomerular Filtration Rate 77 mL/min (>60); Est Glom Filt Rate - Afr Amer 94 mL/min (>60); Glucose 90 mg/dL (74-106); Sodium Level 138 mmol/L (136-145)
== END ==
PROVIDERS: PCP Family Medicine; Referring Provider Family Medicine; Visit Provider Family Medicine
DX: I10 Essential (primary) hypertension (principal)
CPT/HCPCS: 36415; 80048